=== PATIENT | female | born 1940 | race Caucasian/White ===

== ENCOUNTER 2017-10-01 12:50 | Outpatient (CLI) | payer OTHER, MEDICARE | END 2017-10-01 12:51 | disposition home or self-care (01) | LOC: BICRAD 12:50 | PROVIDERS: ATTEND Family Medicine | DX: R05 Cough (principal); J43.9 Emphysema, unspecified; I51.7 Cardiomegaly | CPT/HCPCS: 71046 ==

== ENCOUNTER 2018-08-11 11:26 | Inpatient (IN) | payer MEDICARE, OTHER ==
[2018-08-11 12:07] LABS: #Eosinphils 0.3 thou/uL (0.0-0.7); #Lymphocytes 0.9 thou/uL (1.20-3.40); #Monocytes 0.7 thou/uL (0.11-0.59); #Neutrophils 5.3 thou/uL (1.40-6.50); %Basophils 0.1 % (0.0-1.0); %Eosinophils 4.2 % (0.0-10.0); %Lymphocytes 12.2 % (21.0-51.0); %Monocytes 9.2 % (0.0-10.0); %Neutrophils 74.4 % (42.0-75.0); Hemoglobin 13.3 g/dL (12.0-16.0); Mean Corpuscular HGB CONC 30.7 g/dL (32.0-36.0); Mean Corpuscular Hemoglobin 26.8 pg (27.0-31.0); Mean Corpuscular Volume 87.4 fL (78.0-98.0); Platelet Count 263 thou/uL (130-400); Red Blood Cell (RBC) Count 4.97 mill/uL (4.20-5.40); White Blood Cell (WBC) Count 7.2 thou/uL (4.8-10.8)
--- NOTE | 2018-08-11 12:13 | RAD ---
Chest AP view INDICATION: Shortness of breath COMPARISON: October 01, 2017 FINDINGS: Lungs:There is bibasilar opacities possibly reflective of pneumonia or atelectasis. Cardiac silhouette pulmonary vasculature:There is moderate cardiomegaly with mild pulmonary vascular congestion. Pleural spaces:There is moderate right and small left pleural effusion. Upper abdomen:No abnormality seen. Osseous structures: No acute osseous abnormality. Additional findings:There is a single lead pacemaker overlying the left chest wall which is new. IMPRESSION: Findings suspicious for CHF. Continued follow-up is recommended.
[2018-08-11 12:21] LABS: ALT (SGPT) 9 U/L (8-55); AST (SGOT) 20 U/L (5-34); Albumin 3.5 g/dL (3.4-4.8); Alkaline Phosphatase 115 U/L (40-150); Anion Gap 13 mmol/L (10-20); BUN (Urea Nitrogen) 6 mg/dL (9.8-20.1); Bilirubin, Total 0.9 mg/dL (0.2-1.2); CK (CPK) 59 U/L (29-168); Calc. Creatinine Clearance 0 mL/min (70-130); Calcium 8.9 mg/dL (7.8-10.44); Carbon Dioxide 30 mmol/L (23-31); Chloride 100 mmol/L (98-107); Estimated GFR-MDRD 80; Globulin 3.1 g/dL (2.4-3.5); Glucose 115 mg/dL (83-110); Lipase 53 U/L (8-78); Potassium 3.5 mmol/L (3.5-5.1); Protein, Total 6.6 g/dL (6.0-8.3); Sodium 139 mmol/L (136-145)
[2018-08-11 13:10] LABS: Bilirubin Negative (Negative); Blood, Urine Negative (Negative); Clarity CLOUDY (Clear); Glucose, Urine (Dipstick) Negative (Negative); Leukocyte Moderate (Negative); Nitrite Negative (Negative); Protein, Urine (Dipstick) Negative (Neg-Trace); Specific Gravity, Urine 1.004 (1.002-1.036); Urobilinogen 0.2 mg/dL (0.2-1.0)
[2018-08-11 13:14] LABS: Bacteria/HPF None Seen HPF (None Seen); Hyaline Casts/LPF 4-6 HYALINE CAST LPF (0-3 Hyaline); Pathc Cast-AUWi Flag 1.08 (0-2.49); RBC/HPF 0-3 HPF (0-3)
--- NOTE | 2018-08-11 14:35 | PDOC.FPRHP ---
- History of Present Illness Chief Complaint: shortness of breath History of Present Illness: 78 yo f with PMH of afib, cardiac stentx1, COPD, and CHF presents with shortness of breath and weakness with walking for the past two days. Today, she could not even walk to her car due to weakness and SOB so she called EMS. She denies chest pain and palpitations. She just had a pacemaker placed on Sunday. She also endorses pain in her right thorax and has been told it's pleurisy. She uses 2L O2 NC at home since May. She was recently discharged from the [facility] ( her nursing informatics specialist Dr Ramos is at the [facility]). She came here because Dr. Bello is her warehouse inventory clerk. She denies Fevers/headaches. Reports cough. She was seen by Dr. Ramos (cardiology) and told she had fluid on her lung on Sunday. She was told to make an appointment with Dr. Bello for the pleural effusions and for pulmonary fibrosis. She reports she has a spot in her lung that Dr. Bello said was scar tissue. In the ED: Recieved 80 lasix, cardizem 10 mg (for concern for Afib with RVR, rate was in low 100s). - Allergies/Adverse Reactions Allergies Allergy/AdvReac Type Severity Reaction Status Date / Time adhesive tape Allergy Verified 08/11/18 18:39 - Home Medications Medication Instructions Recorded Confirmed Type Apixaban [Eliquis] 5 mg PO BID 08/11/18 08/11/18 History Aspirin [Aspir-Low] 81 mg PO DAILY 08/11/18 08/11/18 History Folic Acid 1 mg PO DAILY 08/11/18 08/11/18 History Furosemide [Lasix] 40 mg PO DAILY 08/11/18 08/11/18 History Levothyroxine Sodium 50 mcg PO DAILY 08/11/18 08/11/18 History Metoprolol Tartrate 25 mg PO BID 08/11/18 08/11/18 History Potassium Chloride [K-Dur] 20 meq PO DAILY 08/11/18 08/11/18 History Rosuvastatin [Crestor] 10 mg PO HS 08/11/18 08/11/18 History hydrOXYzine [Atarax] 10 mg PO BID PRN 08/11/18 08/11/18 History - History PMHx: 1.)Atrial Fibrillation 2.)CAD s/p stent x 1 3.)PVD s/p stents b/l LE 4.)Laryngeal cancer s/p radiation 2010 5.)Rectocele with pessary 6.)CHF 7.)Pulmonary fibrosis 8.)HTN 9.)HLD 10.)COPD PSHx: pacemaker, stents, D&C x3, appy, hysterectomy FHx: mother-htn, heart disease, cva Social: used to smoke for 40 years, one pack per day, quit 8 years ago; drinks occasionally (1x/mo); denies drug use - Review of Systems General: denies: fever/chills, weight/appetite/sleep changes Eyes: denies: eye pain, vision changes ENT: reports: rhinorrhea. denies: nasal congestion Respiratory: reports: cough (coughs up mucous), congestion, shortness of breath Cardiovascular: denies: chest pain, palpitation, edema Gastrointestinal: denies: nausea, vomiting, diarrhea, GI bleeding Genitourinary: denies: incontinence, dysuria Skin: denies: rashes, lesions Musculoskeletal: denies: pain, tenderness Neurological: reports: weakness. denies: numbness, syncope Psychological: denies: anxiety, depression - Vital signs BP: [123/67] HR: [96] RR: [22] Tmax: [97.6] Pox: [93]% on [4L] Wt: [57 kg] - Physical Exam Constitutional: NAD, awake, alert and oriented HEENT: normocephalic and atraumatic, PERRLA, EOMI, conjunctiva clear, grossly normal hearing, oropharynx clear -HEENT: MM dry Neck: supple, no LAD Heart: other (Irregularly irregular rhythm no murmurs) Lungs: other (decreased air movement diffusely, worse at the bases. No crackles or wheezes or rhonchi) Musculoskeletal: normal structure, normal tone Neurological: no focal deficit, DTRs 2+ Skin: no rash/lesions, good turgor -Skin: cap refill 3 seconds Psychiatric: normal mood and affect, good judgment and insight, intact recent and remote memory FMR H&P: Results - Labs Result Diagrams: 08/11/18 11:57 08/11/18 11:57 Lab results: WBC 7.2 thou/uL (4.8-10.8) 08/11/18 11:57 Hgb 13.3 g/dL (12.0-16.0) 08/11/18 11:57 Hct 43.5 % (36.0-47.0) 08/11/18 11:57 MCV 87.4 fL (78.0-98.0) 08/11/18 11:57 Plt Count 263 thou/uL (130-400) 08/11/18 11:57 Neutrophils % 74.4 % (42.0-75.0) 08/11/18 11:57 Sodium 139 mmol/L (136-145) 08/11/18 11:57 Potassium 3.5 mmol/L (3.5-5.1) 08/11/18 11:57 Chloride 100 mmol/L (98-107) 08/11/18 11:57 Carbon Dioxide 30 mmol/L (23-31) 08/11/18 11:57 BUN 6 mg/dL (9.8-20.1) L 08/11/18 11:57 Creatinine 0.71 mg/dL (0.6-1.1) 08/11/18 11:57 Glucose 115 mg/dL (83-110) H 08/11/18 11:57 Lactic Acid 1.5 mmol/L (0.5-2.2) 08/11/18 11:57 Calcium 8.9 mg/dL (7.8-10.44) 08/11/18 11:57 Total Bilirubin 0.9 mg/dL (0.2-1.2) 08/11/18 11:57 AST 20 U/L (5-34) 08/11/18 11:57 ALT 9 U/L (8-55) 08/11/18 11:57 Alkaline Phosphatase 115 U/L (40-150) 08/11/18 11:57 Creatine Kinase 59 U/L (29-168) 08/11/18 11:57 B-Natriuretic Peptide 352.4 pg/mL (0-100) H 08/11/18 11:57 Serum Total Protein 6.6 g/dL (6.0-8.3) 08/11/18 11:57 Albumin 3.5 g/dL (3.4-4.8) 08/11/18 11:57 Lipase 53 U/L (8-78) 08/11/18 11:57 Urine Ketones Negative mg/dL (Negative) 08/11/18 12:45 Urine Blood Negative (Negative) 08/11/18 12:45 Urine Nitrite Negative (Negative) 08/11/18 12:45 Ur Leukocyte Esterase Moderate (Negative) H 08/11/18 12:45 Urine RBC 0-3 HPF (0-3) 08/11/18 12:45 Urine WBC 11-20 HPF (0-3) H 08/11/18 12:45 Ur Squamous Epith Cells 4-6 HPF (0-3) H 08/11/18 12:45 Urine Bacteria None Seen HPF (None Seen) 08/11/18 12:45 - EKG Interpretation EKG: atrial fibrillation pulse 104, QTc 489 - Radiology Interpretation Chest x-ray Status: image reviewed by me, report reviewed by me Additional comment: moderate cardiomegaly with mild vascular pulmonary congestion, bilat pleural effusions R>L FMR H&P: A/P - Problem List (1) Acute and chronic respiratory failure with hypoxia Current Visit: Yes Status: Acute Code(s): J96.21 - ACUTE AND CHRONIC RESPIRATORY FAILURE WITH HYPOXIA (2) Atrial fibrillation Current Visit: Yes Status: Chronic Code(s): I48.91 - UNSPECIFIED ATRIAL FIBRILLATION (3) Presence of stent in coronary artery in patient with coronary artery disease Current Visit: Yes Status: Chronic Code(s): I25.10 - ATHSCL HEART DISEASE OF [place] CORONARY ARTERY W/O ANG PCTRS; Z95.5 - PRESENCE OF CORONARY ANGIOPLASTY IMPLANT AND GRAFT (4) PVD (peripheral vascular disease) Current Visit: Yes Status: Chronic Code(s): I73.9 - PERIPHERAL VASCULAR DISEASE, UNSPECIFIED (5) Hx of laryngeal cancer Current Visit: Yes Status: Chronic Code(s): Z85.21 - PERSONAL HISTORY OF MALIGNANT NEOPLASM OF LARYNX (6) Rectocele Current Visit: Yes Status: Chronic Code(s): N81.6 - RECTOCELE (7) CHF (congestive heart failure) Current Visit: Yes Status: Chronic Code(s): I50.9 - HEART FAILURE, UNSPECIFIED (8) Pulmonary fibrosis Current Visit: Yes Status: Chronic Code(s): J84.10 - PULMONARY FIBROSIS, UNSPECIFIED (9) HTN (hypertension) Current Visit: Yes Status: Chronic Code(s): I10 - ESSENTIAL (PRIMARY) HYPERTENSION (10) HLD (hyperlipidemia) Current Visit: Yes Status: Chronic Code(s): E78.5 - HYPERLIPIDEMIA, UNSPECIFIED (11) COPD (chronic obstructive pulmonary disease) Current Visit: Yes Status: Chronic - Plan Acute on chronic hypoxemic respiratory failure 2/2 CHF Exacerbation -SOB today, BNP elevated; at home on 2L BNC, here requring 3 L -recently placed pacemaker -[facility] her [facility] at the [facility], will request records -ED: 80 lasix IV, cardizem 10 mg -EKG shows atrial fib, tachycardic to 104 -ABG shows hypoxemia -continue home lasix -consider echo after we receive records from the [facility] Pleuritis -CXR shows bilat pleural effusions, R>L -complains of right and left sided back pain that is inspiratory -toradol PRN for pain Atrial Fibrillation -continue eliquis, bb -s/p pacemaker 2 days ago -hx of multiple failed cardioversions CAD s/p stent x 1 PVD s/p stents b/l LE -aware CHF -unknown type -as above Pulmonary fibrosis -plans to follow up outpatient with Dr. Bello HTN -continue home meds HLD -continue home crestor COPD -duonebs PRN -40 PY hx, quit 8 yrs ago Dispo: admit to tele obs PCP: Dr. Melendez Code status: Full Diet: HH, fluid restricted FMR H&P: Upper Level - Pertinent history 78 f with pmhx of CHF and COPD presents with shortness of breath, SERRANO, orthopnea , admitted for a acute on chronic hypoxic respiratory failure 2/2 CHF exacerbation and Afib with RVR. NAD irregularly irregular, 80s crackles bilaterally, saturating 90% 3-4L abdomen soft, nondistended, nontender 1+ pitting edema A/P: #Acute hypoxic respiratory failure 2/2 CHF exacerbation-chronically requires oxygen 2L at home. Increased oxygen requirement here 3-4L. Will diurese with lasix, monitor I/Os, net goal -1L. #Afib with RVR- pt HR in the 80s currently after getting diltiazem in the ER; will restart home meds and monitor on tele #COPD, Pulm fibrosis-pt desires to see Dr. Bello during this hospitalization. Will monitor respiratory status overnight and consider consult in the am. Chronic conditions-see technical internship note. - Plan Date/Time: 08/11/18 1431 I, [], have evaluated this patient and agree with findings/plan as outlined by technical internship resident. Pertinent changes/additions are listed here.
[2018-08-11] MEDS ORDERED: Furosemide 40 MG/4 ML VIAL ONE (14:52)
[2018-08-11 15:19] LABS: Troponin I 0.022 ng/mL (< 0.028)
[2018-08-11 16:44] LABS: Actual Bicarbonate (HCO3a) 29.6 mEq/L (22-28); Analyzer IN Cardio ER; Base Excess (BEa) 3.4 mEq/L (-2.0 to +3.0); CO2 Tension 50.9 mmHg (35.0-45.0); Carboxyhemoglobin (COHb) 0.9 gm% (0.0-3.0); Hemoglobin (Hb) 14.5 g/dL (12.0-16.0); Potassium - ABG Lab 3.48 mmol/L (3.70-5.30); pH, Arterial 7.38 (7.35-7.45)
[2018-08-11 16:45] LABS: O2 Tension (PaO2) 57.5 mmHg (> 70.0); Puncture Site LRA
--- NOTE | 2018-08-11 16:51 | PDOC.EVN ---
Addendum - Attending - Attending Attestation Date/Time: 08/11/18 1964 I personally evaluated the patient and discussed the management with Dr. Mckeon/ Caity. I agree with the History, Examination, Assessment and Plan documented in the electronic H&P with any addition or exceptions noted below. Patient with history of COPD, lung fibrosis, CHF unspecified, and Afib here with 2 days of worsening SERRANO with minimal ambulation, worsening orthopnea. Denies LE edema. Had pacemaker placed 2 days ago at [facility]. Denies chest pain, cough, fevers. Exam shows no respiratory distress, lungs with rales diffusely on inspiration. No LE edema. Heart rate irregular. Labs show elevated BNP, cardiac enzymes negative, CXR consistent with CHF. Plan to admit patient to tele , continue her increased O2 requirement as needed. Increase diuresis. Consider echocardiogram given her recent pacemaker placement to ensure this is not due to AV dissynchrony. Consider cardiology consult in AM. Monitor HR, currently in her chronic Afib.
[2018-08-11] MEDS ORDERED: Acetaminophen 650 MG Suppository PR PRN (18:02)
[2018-08-11] MEDS ORDERED: Senokot S 8.6-50 MG TAB PO PRN (18:02)
[2018-08-11] MEDS ORDERED: Acetaminophen 325 MG TAB PO PRN (18:02)
[2018-08-11 18:40] LABS: Troponin I 0.025 ng/mL (< 0.028)
[2018-08-11] MEDS: Apixaban 5 MG TAB PO SCH (19:51)
[2018-08-11] MEDS: Famotidine 20 MG TAB PO SCH (19:51)
[2018-08-11] MEDS: Rosuvastatin 10 MG TAB PO SCH (19:51)
[2018-08-11] MEDS: Metoprolol Tartrate 25 MG TAB PO SCH (19:51)
[2018-08-11] MEDS: Ketorolac Tromethamine 30 MG/ML VIAL IVP SCH (19:53)
[2018-08-11] MEDS: hydrOXYzine 10 MG TAB PO PRN (20:51)
[2018-08-12] MEDS: Ketorolac Tromethamine 30 MG/ML VIAL IVP SCH ×2 (00:01→06:09)
[2018-08-12 05:41] LABS: #Eosinphils 0.5 thou/uL (0.0-0.7); #Lymphocytes 1.6 thou/uL (1.20-3.40); #Monocytes 0.9 thou/uL (0.11-0.59); #Neutrophils 3.3 thou/uL (1.40-6.50); %Basophils 0.7 % (0.0-1.0); %Eosinophils 7.7 % (0.0-10.0); %Lymphocytes 24.9 % (21.0-51.0); %Monocytes 14.2 % (0.0-10.0); %Neutrophils 52.6 % (42.0-75.0); Hemoglobin 12.2 g/dL (12.0-16.0); Mean Corpuscular HGB CONC 31.5 g/dL (32.0-36.0); Mean Corpuscular Hemoglobin 27.6 pg (27.0-31.0); Mean Corpuscular Volume 87.6 fL (78.0-98.0); Mean Platelet Volume 9.4 fL (7.4-10.4); Platelet Count 250 thou/uL (130-400); RBC Distribution Width 17.3 % (11.5-14.5); Red Blood Cell (RBC) Count 4.42 mill/uL (4.20-5.40); White Blood Cell (WBC) Count 6.2 thou/uL (4.8-10.8)
[2018-08-12 06:06] LABS: Anion Gap 13 mmol/L (10-20); BUN (Urea Nitrogen) 7 mg/dL (9.8-20.1); Calc. Creatinine Clearance 48 mL/min (70-130); Calcium 8.7 mg/dL (7.8-10.44); Carbon Dioxide 30 mmol/L (23-31); Chloride 100 mmol/L (98-107); Estimated GFR-MDRD 64; Glucose 71 mg/dL (83-110); Potassium 3.1 mmol/L (3.5-5.1); Sodium 140 mmol/L (136-145)
[2018-08-12] MEDS: Levothyroxine Sodium 50 MCG TAB PO SCH (06:08)
[2018-08-12] MEDS: Furosemide 40 MG/4 ML VIAL SLOW IVP SCH ×2 (06:12→13:36)
[2018-08-12] MEDS: Metoprolol Tartrate 25 MG TAB PO SCH ×2 (08:23→19:53)
[2018-08-12] MEDS: Apixaban 5 MG TAB PO SCH ×2 (08:23→19:52)
[2018-08-12] MEDS: Aspirin 81 mg Enteric Coated Tablet PO SCH (08:24)
[2018-08-12] MEDS: Famotidine 20 MG TAB PO SCH ×2 (08:24→19:52)
[2018-08-12] MEDS: Folic Acid 1 MG TAB PO SCH (08:25)
--- NOTE | 2018-08-12 08:41 | PDOC.FM ---
- Subjective Subjective: Pt states that he breathing is improved overnight. She reports continued right sided rib/chest wall pain that wraps around to her back. - Objective MAR Reviewed: Yes Vital Signs & Weight: Vital Signs (12 hours) Temp Pulse Resp BP Pulse Ox 08/12/18 07:25 97.7 F 89 18 123/96 H 96 08/12/18 04:20 97.9 F 92 16 143/76 H 96 08/11/18 23:37 97.4 F L 91 20 135/63 97 Weight Weight 56.2 kg I&O: 08/11/18 08/12/18 08/13/18 06:59 06:59 06:59 Intake Total 324 Output Total 825 Balance -501 Result Diagrams: 08/12/18 04:24 08/12/18 04:24 Phys Exam - Physical Examination Constitutional: NAD HEENT: moist MMs Neck: no JVD, full ROM Crackles at bases, more on the right. Fair air movement Cardiovascular: RRR Gastrointestinal: soft, non-tender, no distention, positive bowel sounds Musculoskeletal: no edema, pulses present Neurological: normal sensation, moves all 4 limbs Psychiatric: A&O x 3 Skin: cap refill <2 seconds Dx/Plan (1) Acute and chronic respiratory failure with hypoxia Code(s): J96.21 - ACUTE AND CHRONIC RESPIRATORY FAILURE WITH HYPOXIA Status: Acute (2) Atrial fibrillation Code(s): I48.91 - UNSPECIFIED ATRIAL FIBRILLATION Status: Chronic (3) CHF (congestive heart failure) Code(s): I50.9 - HEART FAILURE, UNSPECIFIED Status: Chronic (4) COPD (chronic obstructive pulmonary disease) Status: Chronic (5) HLD (hyperlipidemia) Code(s): E78.5 - HYPERLIPIDEMIA, UNSPECIFIED Status: Chronic (6) HTN (hypertension) Code(s): I10 - ESSENTIAL (PRIMARY) HYPERTENSION Status: Chronic (7) Hx of laryngeal cancer Code(s): Z85.21 - PERSONAL HISTORY OF MALIGNANT NEOPLASM OF LARYNX Status: Chronic - Plan Plan: This is a 78 yo female with a pmh of HTN, afib, CHF, pulmonary fibrosis, COPD Acut on chronic hypoxemic respirator failure 2/2 CHF exacerbation -Improving, stable on 4L nc overnight, plan to wean -Recent pacemaker placed -Pending Med records -Continue IV lasix, plan to change to PO this afternoon/tomorrow -Echo if no records from the med Pleuritis -Associated pleural effusions, repeat CXR today and consider thoracentesis -Tylenol and naproxen for pain CAD PVD CHF -Pending records Pulmonary fibrosis -Follow up with Dr. Bello outpt HTN -Continue home meds HLD -Continue home crestor COPD -Duonebs PRN -40 py hx, quit 8 years ago Addendum - Attending - Attending Attestation Date/Time: 08/12/18 2698 I personally evaluated the patient and discussed the management with Dr. Pham I agree with the History, Examination, Assessment and Plan documented above with any addition or exceptions noted below.Patient s/p recent pacemaker atrial fibrillation with bradycardia Medical records from [facility] to be reviewed. Dullness noted LLL oxygen saturations improved with diuresis for f/u CXR today deterime severity Pleural effusion and indications for thoracentesis.
[2018-08-12] MEDS ORDERED: Naproxen 500 MG TAB PO PRN (08:50)
[2018-08-12] MEDS ORDERED: Potassium Chloride 20 MEQ TAB PO SCH (09:00)
[2018-08-12] MEDS: Acetaminophen 325 MG TAB PO SCH ×2 (13:36→18:10)
[2018-08-12] MEDS: Potassium Chloride 20 MEQ TAB PO SCH ×2 (13:36→18:10)
[2018-08-12] MEDS ORDERED: Diltiazem 125 MG in Sodium Chloride 0.9% 100 ML IVPB SCH (15:00)
[2018-08-12] MEDS ORDERED: Metoprolol Tartrate 25 MG TAB PO SCH (15:00)
--- NOTE | 2018-08-12 15:53 | RAD ---
EXAM: Two views chest PROVIDED CLINICAL HISTORY: Pleural effusion. COMPARISON: 08/11/2018 FINDINGS: Single lead left subclavian cardiac pacemaker device remains in place. The right cardiac border is ob scured due to moderately large right pleural effusion. There is associated atelectasis at the right lung base. Increased interstitial densities are seen in the lungs bilaterally which may be related to mild chronic lung changes. Vascular calcifications are seen in the thoracic aorta. No other interval change. IMPRESSION: Stable chest with moderately large right pleural effusion and associated atelectasis. Superimposed in filtrate cannot be entirely excluded..
[2018-08-12] MEDS: hydrOXYzine 10 MG TAB PO PRN (18:10)
[2018-08-12] MEDS: Rosuvastatin 10 MG TAB PO SCH (19:52)
[2018-08-12] MEDS ORDERED: Metoprolol Tartrate 50 MG TAB PO SCH (21:00)
[2018-08-13] MEDS: Acetaminophen 325 MG TAB PO SCH ×4 (01:11→17:07)
[2018-08-13 05:52] LABS: #Eosinphils 0.5 thou/uL (0.0-0.7); #Lymphocytes 1.6 thou/uL (1.20-3.40); #Monocytes 0.7 thou/uL (0.11-0.59); %Basophils 0.6 % (0.0-1.0); %Eosinophils 8.2 % (0.0-10.0); %Lymphocytes 27.3 % (21.0-51.0); %Monocytes 11.7 % (0.0-10.0); %Neutrophils 52.1 % (42.0-75.0); Hemoglobin 12.5 g/dL (12.0-16.0); Mean Corpuscular HGB CONC 31.3 g/dL (32.0-36.0); Mean Corpuscular Hemoglobin 27.4 pg (27.0-31.0); Mean Corpuscular Volume 87.7 fL (78.0-98.0); Mean Platelet Volume 9.3 fL (7.4-10.4); Platelet Count 259 thou/uL (130-400); RBC Distribution Width 17.1 % (11.5-14.5); Red Blood Cell (RBC) Count 4.56 mill/uL (4.20-5.40); White Blood Cell (WBC) Count 5.8 thou/uL (4.8-10.8)
[2018-08-13 06:01] LABS: Anion Gap 11 mmol/L (10-20); BUN (Urea Nitrogen) 11 mg/dL (9.8-20.1); Calc. Creatinine Clearance 38 mL/min (70-130); Calcium 8.7 mg/dL (7.8-10.44); Carbon Dioxide 31 mmol/L (23-31); Chloride 101 mmol/L (98-107); Estimated GFR-MDRD 49; Glucose 82 mg/dL (83-110); Sodium 139 mmol/L (136-145)
[2018-08-13] MEDS: Levothyroxine Sodium 50 MCG TAB PO SCH (06:20)
[2018-08-13] MEDS: Furosemide 40 MG/4 ML VIAL SLOW IVP SCH (06:20)
--- NOTE | 2018-08-13 06:34 | PDOC.FM ---
- Subjective Subjective: No complaints overnight. She denies SOB, chest pain, palpitations, or abdominal pain. She still continues to complain of some rib pain on the right that is worse with palpation. - Objective MAR Reviewed: Yes Vital Signs & Weight: Vital Signs (12 hours) Temp Pulse Resp BP Pulse Ox 08/13/18 03:45 98.1 F 86 16 154/67 H 95 08/12/18 23:32 98.5 F 69 20 152/63 H 96 08/12/18 19:52 94 L Weight Weight 56.563 kg I&O: 08/11/18 08/12/18 08/13/18 06:59 06:59 06:59 Intake Total 324 480 Output Total 825 Balance -501 480 Result Diagrams: 08/13/18 04:40 08/13/18 04:40 Phys Exam - Physical Examination Constitutional: NAD HEENT: moist MMs Neck: no nodes, no JVD Mild Wheezing diffusely in the lung hancock and crackles at bases R>L Cardiovascular: no significant murmur Irregular rate and rhythm Gastrointestinal: soft, non-tender, no distention, positive bowel sounds Musculoskeletal: no edema, pulses present Neurological: moves all 4 limbs Psychiatric: A&O x 3 Skin: cap refill <2 seconds Dx/Plan (1) Acute and chronic respiratory failure with hypoxia Code(s): J96.21 - ACUTE AND CHRONIC RESPIRATORY FAILURE WITH HYPOXIA Status: Acute (2) Atrial fibrillation Code(s): I48.91 - UNSPECIFIED ATRIAL FIBRILLATION Status: Chronic (3) CHF (congestive heart failure) Code(s): I50.9 - HEART FAILURE, UNSPECIFIED Status: Chronic (4) COPD (chronic obstructive pulmonary disease) Status: Chronic (5) HLD (hyperlipidemia) Code(s): E78.5 - HYPERLIPIDEMIA, UNSPECIFIED Status: Chronic (6) HTN (hypertension) Code(s): I10 - ESSENTIAL (PRIMARY) HYPERTENSION Status: Chronic (7) Hx of laryngeal cancer Code(s): Z85.21 - PERSONAL HISTORY OF MALIGNANT NEOPLASM OF LARYNX Status: Chronic - Plan Plan: This is a 78 yo female with a pmh of HTN, afib, CHF, pulmonary fibrosis, COPD Acut on chronic hypoxemic respirator failure 2/2 CHF exacerbation -Improving, stable on 2L nc overnight, plan to wean -Recent pacemaker placed -Change to PO Pleuritis -Associated pleural effusions, repeat CXR shows unchanged pleural effusions, no plan for thoracentesis as pt is improving -Tylenol and naproxen for pain CAD PVD HFpEF -LVEF 55-60% at Med 06/27/18 Pulmonary fibrosis -Follow up with Dr. Bello outpt HTN -Continue home meds HLD -Continue home crestor COPD -Duonebs PRN -40 py hx, quit 8 years ago Addendum - Attending - Attending Attestation Date/Time: 08/13/18 6008 I personally evaluated the patient and discussed the management with Dr. Pham I agree with the History, Examination, Assessment and Plan documented above with any addition or exceptions noted below. Moderate Right sided Pleural effusion noted no dyspnea however mild splinting with deep inspiration. Last pm A-Fib with RVR currently rate controlled and back on oral diltiazem. Review records from [facility] indicate right sided pleural effusion not new. Patient continues to improve may benefit from diagnostic thoracentesis in the future as long as continued clinical improvement recommend expectant management for the time being. Will confer with Pulmonary prn.
[2018-08-13] MEDS: Aspirin 81 mg Enteric Coated Tablet PO SCH (09:23)
[2018-08-13] MEDS: Potassium Chloride 20 MEQ TAB PO SCH ×3 (09:24→17:06)
[2018-08-13] MEDS: Folic Acid 1 MG TAB PO SCH (09:25)
[2018-08-13] MEDS: Metoprolol Tartrate 25 MG TAB PO SCH ×2 (09:25→19:37)
[2018-08-13] MEDS: Apixaban 5 MG TAB PO SCH (09:25)
[2018-08-13] MEDS: Furosemide 40 MG TAB PO SCH (10:47)
--- NOTE | 2018-08-13 11:04 | PQF ---
CLINICAL DOCUMENTATION IMPROVEMENT CLARIFICATION FORM: ICD-10 Updated PLEASE DO AN ADDENDUM TO THE PROGRESS NOTE WITH ANY DOCUMENTATION UPDATES OR ADDITIONS AND CARRY THROUGH TO DC SUMMARY. THANK YOU. DATE: 08/16/18 ATTN: DR. AGUILA Please exercise your independent, professional judgment in responding to the clarification form. Clinical indicators are provided on the bottom of this form for your review Please check appropriate box(s): HEART FAILURE: A. TYPE: [ ] Systolic / HFrEF [ ] Diastolic / HFpEF [ ] Combined Systolic / Diastolic B. ACUITY [ ] Acute [ ] Acute on Chronic [ ] Chronic [ x] Other diagnosis, pulmonary hypertension [ ] Unable to determine In addition, please specify: Present on Admission (POA): [ x ] Yes [ ] No [ ] Unable to determine For continuity of documentation, please document condition throughout progress notes and discharge summary. Thank You. CLINICAL INDICATORS - SIGNS / SYMPTOMS / LABS ER NOTE: "CHF EXACERBATION" PROGRESS NOTE: "ACUTE ON CHRONIC RESPIRATORY FAILURE 2/2 CHF EXACERBATION BNP 352.4 RISKS: AFIB PULMONARY DISEASE TREATMENT: IV LASIX (ER-08/13) PO LASIX (START 08/13) CARDIOLOGY CONSULT SERIAL LABS (This form is maintained as a part of the permanent medical record) 2014 [employer]. All Rights Reserved MTDD
--- NOTE | 2018-08-13 16:19 | CON ---
DATE OF CONSULTATION: 08/13/2018 SERVICE: Pulmonary Medicine. REASON FOR CONSULTATION: Pleural effusion. HISTORY OF PRESENT ILLNESS: The patient is a 78-year-old white female with past medical history significant for atrial fibrillation. She was recently hospitalized because of AFib with RVR. Ultimately, she had a single-lead pacemaker placed. This was placed on Sunday. She was discharged home from hospital, and was actually feeling very good. That being said, Sunday morning, she woke up and simply felt weak. This progressed throughout the entire day. On Sunday morning, she had increasing dyspnea with, particularly with exertion. She presented to the emergency department on Sunday evening, and was subsequently admitted to the hospital. A new pleural effusion was identified. We have never seen this type of thing before. She denies any current fevers or chills. She denies any nausea or vomiting. She was not having any diarrhea. She felt extremely weak, and whenever she stands up, she felt lightheaded. In the emergency department, she was discovered to be in atrial fibrillation. She had a rapid rate. Since being in the hospital, she was diuresed and she is actually feeling a little bit stronger/better. PAST MEDICAL HISTORY: 1. Chronic hypoxic respiratory failure. 2. Pulmonary fibrosis, possible, but early in the process. 3. Atrial fibrillation. 4. Coronary artery disease. 5. Peripheral vascular disease. 6. History of laryngeal cancer status post radiation therapy in 2010. 7. Rectocele with pessary in place. 8. Congestive heart failure. 9. Hypertension. 10. Dyslipidemia. PAST SURGICAL HISTORY: 1. Pacemaker placement, 4 days ago. 2. Percutaneous coronary intervention. 3. Peripheral stent in bilateral lower extremities. 4. Dilation and curettage x3. 5. Appendectomy. 6. Hysterectomy. FAMILY HISTORY: Noncontributory. SOCIAL HISTORY: She has a greater than [id number] history of smoking, but quit about 8 years ago. She drinks alcohol rarely, and denies any street drugs. She has no exposure to chemicals, dust, asbestos, or tuberculosis otherwise. ALLERGIES: TAPE. MEDICATIONS: List of her inpatient medications were reviewed. I have held her anticoagulation for the time being. REVIEW OF SYSTEMS: General; head, ears, eyes, nose, and throat; cardiovascular; respiratory; GI; ; musculoskeletal; neurologic; and skin is negative except as mentioned in the HPI. PHYSICAL EXAMINATION: VITAL SIGNS: Afebrile, pulse 101, blood pressure 136/87, respirations 16, and saturation 92% on 3L nasal cannula. GENERAL: The patient is awake and alert, in no apparent distress. HEENT: Normocephalic and atraumatic. Sclerae white. Conjunctivae pink. Oral mucosa is moist without lesions. LUNGS: Very reduced air entry. There is a slightly prolonged expiratory phase. Poor air entry at the right base. There is dullness to percussion there. There is a slightly prolonged expiratory phase. No wheezing is appreciated, though crackles are present. HEART: Normal rate and regular. ABDOMEN: Soft, nontender, and nondistended. Bowel sounds are positive. MUSCULOSKELETAL: No cyanosis or clubbing. There is no pitting in the bilateral lower extremities. NEUROLOGIC: Grossly nonfocal. LABORATORY DATA: WBC 5.8, hemoglobin 12.5 and stable, and platelets 259,000. Differential falls within the normal limits with elevated monocyte count. INR 2.8. A pH of 7.38, pCO2 of 51, and pO2 of 57.5. Basic metabolic profile is unremarkable. Creatinine 1.09, it is gently up trending. Troponin is negative x3. Lactate is negative. Liver function studies are unremarkable. BNP is 352, with no baseline. Urinalysis is positive for minimal leukocyte esterase, but otherwise unremarkable. Urinalysis is negative to date. IMAGING STUDIES: Chest x-ray shows a large moderate right-sided pleural effusion. There is possibly a left-sided pleural effusion, which is small. Interstitial fullness is present throughout bilateral lung hancock. Trachea is midline. The carinal angle appears to be fairly sharp. ASSESSMENT: 1. [id number]-dl-oyhvpim hypoxic respiratory failure. 2. Chronic hypercapnic respiratory failure. 3. Pleural effusion, possibly new onset. 4. Atrial fibrillation, status post single-lead pacemaker placement. DISCUSSION AND PLAN: We will continue to diurese her cautiously through time. I will hold her anticoagulation in case she needs additional procedures and/or thoracentesis over the next 24-48 hours. The patient indicates that she is feeling a little better. We have not seen an echocardiogram since she had this pacemaker placed. We will get a stat one to make certain she did not have any pericardial effusion and to evaluate for dyssynchrony. Pulmonary will continue to follow. Dr. Bello will assume care in the morning. 70 minutes have been devoted to this patient in various activities. I personally reviewed all imaging studies and laboratory data noted within this document. For fifty percent of this time, I was interacting with the patient at the bedside or coordinating care with the care team. For the remainder of the time I was immediately available to the patient in the hospital unit. Job ID: [id number] MTDD
--- NOTE | 2018-08-13 16:47 | EKG ---
Test Reason : Blood Pressure : / mmHG Vent. Rate : 122 BPM Atrial Rate : 104 BPM P-R Int : 000 ms QRS Dur : 084 ms QT Int : 302 ms P-R-T Axes : 000 073 220 degrees QTc Int : 430 ms 3 Atrial fibrillation with rapid ventricular response Septal infarct , age undetermined Abnormal ECG When compared with ECG of 11-AUG-2018 11:47, (Unconfirmed) No significant change was found Confirmed by DR. Jordan PALACIOS (3) on 08/13/2018 4:47:20 PM Referred By: Confirmed By:DR. Jordan PALACIOS
--- NOTE | 2018-08-13 16:56 | EKG ---
Test Reason : Blood Pressure : / mmHG Vent. Rate : 102 BPM Atrial Rate : 112 BPM P-R Int : 000 ms QRS Dur : 082 ms QT Int : 358 ms P-R-T Axes : 000 085 261 degrees QTc Int : 466 ms one paced beat Atrial fibrillation with rapid ventricular response with premature ventricular or aberrantly conducte d complexes Abnormal ECG When compared with ECG of 11-AUG-2018 11:47, (Unconfirmed) Electronic demand pacing is now Present Confirmed by DR. Jordan PALACIOS (3) on 08/13/2018 4:56:10 PM Referred By: REMEDIOS Confirmed By:DR. Jordan PALACIOS
[2018-08-13] MEDS: hydrOXYzine 10 MG TAB PO PRN (17:10)
[2018-08-13] MEDS: Rosuvastatin 10 MG TAB PO SCH (19:37)
[2018-08-13] MEDS: Famotidine 20 MG TAB PO SCH (19:37)
[2018-08-14] MEDS: Acetaminophen 325 MG TAB PO SCH ×4 (00:02→17:28)
[2018-08-14] MEDS: Levothyroxine Sodium 50 MCG TAB PO SCH (05:52)
--- NOTE | 2018-08-14 07:04 | PDOC.FM ---
- Subjective Subjective: Pt state her breathing is improved. She denies chest pain. She denies other complaints - Objective MAR Reviewed: Yes Vital Signs & Weight: Vital Signs (12 hours) Temp Pulse Resp BP BP Pulse Ox 08/14/18 03:45 97.7 F 105 H 18 132/64 98 08/13/18 20:00 97.2 F L 89 20 132/62 96 08/13/18 19:20 96 Weight Weight 55.52 kg I&O: 08/13/18 08/14/18 08/15/18 06:59 06:59 06:59 Intake Total 734 780 Output Total 1450 Balance 734 -670 Result Diagrams: 08/14/18 06:56 08/14/18 06:56 Phys Exam - Physical Examination Constitutional: NAD HEENT: moist MMs Neck: no JVD Crackles and dull breath sounds on the right Cardiovascular: no significant murmur Tachycardic, irregular rhythm Gastrointestinal: soft, non-tender, no distention, positive bowel sounds Musculoskeletal: pulses present Neurological: moves all 4 limbs Psychiatric: normal affect, A&O x 3 Skin: cap refill <2 seconds Dx/Plan (1) Acute and chronic respiratory failure with hypoxia Code(s): J96.21 - ACUTE AND CHRONIC RESPIRATORY FAILURE WITH HYPOXIA Status: Acute (2) Atrial fibrillation Code(s): I48.91 - UNSPECIFIED ATRIAL FIBRILLATION Status: Chronic (3) CHF (congestive heart failure) Code(s): I50.9 - HEART FAILURE, UNSPECIFIED Status: Chronic (4) COPD (chronic obstructive pulmonary disease) Status: Chronic (5) HLD (hyperlipidemia) Code(s): E78.5 - HYPERLIPIDEMIA, UNSPECIFIED Status: Chronic (6) HTN (hypertension) Code(s): I10 - ESSENTIAL (PRIMARY) HYPERTENSION Status: Chronic (7) Hx of laryngeal cancer Code(s): Z85.21 - PERSONAL HISTORY OF MALIGNANT NEOPLASM OF LARYNX Status: Chronic - Plan Plan: This is a 78 yo female with a pmh of HTN, afib, CHF, pulmonary fibrosis, COPD Acut on chronic hypoxemic respirator failure 2/2 CHF exacerbation -Improving, stable on 3L nc overnight, plan to wean to baseline of 2L -Recent pacemaker placed -Changed to PO Pleuritis -Associated pleural effusions, repeat CXR shows unchanged pleural effusions, Eliquis held, considering thoracentesis -Tylenol and naproxen for pain -Pulmonology consulted, will appreciate their recommendations CAD PVD CHF -LVEF 55-60% at Med 06/27/18, with no mention of diastolic heart failure -Pending Echo here Pulmonary fibrosis -Follow up with Dr. Bello outpt HTN -Continue home meds HLD -Continue home crestor COPD -Duonebs PRN -40 py hx, quit 8 years ago Afib -Pt on home meds, continues to have elevated HR, increasing Metoprolol to 50mg BID Addendum - Attending - Attending Attestation Date/Time: 08/14/18 1220 I personally evaluated the patient and discussed the management with Dr. Pham I agree with the History, Examination, Assessment and Plan documented above with any addition or exceptions noted below. Patient with significant SERRANO this am post ambulation. Appreciate Pulmonary Figure Refinisher And Repairer recommendations regard care and further consideration thoracentesis for therapeutic and diagnostic reasons DOAC on hold for now. Heart rate poorly controlled will need escalate BB and diltiazem as BP permits for improved rate control. Repeat echocardiogram completed results pending consider Cardiology consultation prn.
[2018-08-14 07:10] LABS: #Eosinphils 0.4 thou/uL (0.0-0.7); #Lymphocytes 1.4 thou/uL (1.20-3.40); #Monocytes 0.6 thou/uL (0.11-0.59); #Neutrophils 3.4 thou/uL (1.40-6.50); %Basophils 0.6 % (0.0-1.0); %Eosinophils 7.2 % (0.0-10.0); %Lymphocytes 24.2 % (21.0-51.0); %Monocytes 10.4 % (0.0-10.0); %Neutrophils 57.6 % (42.0-75.0); Hemoglobin 13.1 g/dL (12.0-16.0); Mean Corpuscular HGB CONC 31.7 g/dL (32.0-36.0); Mean Corpuscular Hemoglobin 27.7 pg (27.0-31.0); Mean Corpuscular Volume 87.3 fL (78.0-98.0); Platelet Count 255 thou/uL (130-400); RBC Distribution Width 17.2 % (11.5-14.5); Red Blood Cell (RBC) Count 4.74 mill/uL (4.20-5.40)
[2018-08-14 07:31] LABS: Anion Gap 10 mmol/L (10-20); BUN (Urea Nitrogen) 15 mg/dL (9.8-20.1); Calc. Creatinine Clearance 41 mL/min (70-130); Calcium 8.9 mg/dL (7.8-10.44); Carbon Dioxide 32 mmol/L (23-31); Chloride 102 mmol/L (98-107); Estimated GFR-MDRD 54; Glucose 82 mg/dL (83-110); Potassium 4.4 mmol/L (3.5-5.1); Sodium 140 mmol/L (136-145)
[2018-08-14] MEDS ORDERED: Metoprolol Tartrate 25 MG TAB PO SCH (08:54)
[2018-08-14] MEDS: Potassium Chloride 20 MEQ TAB PO SCH ×3 (09:12→17:27)
[2018-08-14] MEDS: Furosemide 40 MG TAB PO SCH (09:13)
[2018-08-14] MEDS: Folic Acid 1 MG TAB PO SCH (09:14)
[2018-08-14] MEDS: Aspirin 81 mg Enteric Coated Tablet PO SCH (09:14)
[2018-08-14] MEDS: Metoprolol Tartrate 50 MG TAB PO SCH ×2 (10:13→20:21)
--- NOTE | 2018-08-14 18:00 | PRG ---
DATE OF SERVICE: 08/14/2018 SUBJECTIVE: Mary Cronin was evaluated. She has no complaints. She says she is feeling a little bit better. She is still complaining of some pleuritic chest discomfort. I reviewed her chest radiograph and she has a significant effusion on the right. OBJECTIVE: VITAL SIGNS: She is afebrile. Heart rate is 105, respiratory rate 18, oximetry is 95% on 2 L. LUNGS: Remarkable for decreased breath sounds at the right base. Heart: Irregular rhythm. ABDOMEN: Soft. She is still in atrial fib, reviewed on the monitor. IMPRESSION: 1. Atrial fibrillation, on anticoagulation. Atrial fibrillation is most likely the cause of her effusion. I saw her recently in the office and reviewed a chest x-ray. She was referred for subpleural increase in interstitial markings that I explained to her that it could be the beginning of usual interstitial pneumonitis, but also could be turned out to be nothing such as postinflammatory pulmonary fibrosis. 2. Clinically, I do not believe that she needs a thoracentesis at this time. If her atrial fibrillation can be controlled or she can be kept in sinus rhythm, then we might find that the effusion is gone within a couple weeks. I will re-evaluate her in the morning. I would not withhold anticoagulants for thoracentesis. I will continue to follow with the other physicians. Job ID: [id number]
[2018-08-14] MEDS: Rosuvastatin 10 MG TAB PO SCH (20:21)
[2018-08-14] MEDS: Famotidine 20 MG TAB PO SCH (20:21)
[2018-08-14] MEDS: hydrOXYzine 10 MG TAB PO PRN (20:21)
[2018-08-15] MEDS: Acetaminophen 325 MG TAB PO SCH ×5 (02:02→23:45)
[2018-08-15] MEDS: Levothyroxine Sodium 50 MCG TAB PO SCH (05:34)
--- NOTE | 2018-08-15 06:04 | PDOC.FM ---
- Subjective Subjective: Pt state her breathing is continuing to improve. She states that she had one episode of dizziness yesterday when she was standing up. This was resolved with sitting on the edge of the bed. - Objective MAR Reviewed: Yes Vital Signs & Weight: Vital Signs (12 hours) Temp Pulse Resp BP Pulse Ox 08/15/18 04:00 97.1 F L 102 H 17 166/94 H 96 08/14/18 19:20 97.8 F 108 H 20 94/52 L 93 L Weight Weight 55.52 kg I&O: 08/13/18 08/14/18 08/15/18 06:59 06:59 06:59 Intake Total 734 780 740 Output Total 9640 820 Balance 734 -670 -80 Result Diagrams: 08/15/18 06:07 08/15/18 06:08 Phys Exam - Physical Examination Constitutional: NAD HEENT: moist MMs Neck: no JVD Dull lung sounds at right base, mild crackles at both bases Cardiovascular: no significant murmur Tachycardic, irregular rhythm Gastrointestinal: soft, no distention, positive bowel sounds Musculoskeletal: no edema, pulses present Neurological: moves all 4 limbs Psychiatric: A&O x 3 Skin: cap refill <2 seconds Dx/Plan (1) Acute and chronic respiratory failure with hypoxia Code(s): J96.21 - ACUTE AND CHRONIC RESPIRATORY FAILURE WITH HYPOXIA Status: Acute (2) Atrial fibrillation Code(s): I48.91 - UNSPECIFIED ATRIAL FIBRILLATION Status: Chronic (3) CHF (congestive heart failure) Code(s): I50.9 - HEART FAILURE, UNSPECIFIED Status: Chronic (4) COPD (chronic obstructive pulmonary disease) Status: Chronic (5) HLD (hyperlipidemia) Code(s): E78.5 - HYPERLIPIDEMIA, UNSPECIFIED Status: Chronic (6) HTN (hypertension) Code(s): I10 - ESSENTIAL (PRIMARY) HYPERTENSION Status: Chronic (7) Hx of laryngeal cancer Code(s): Z85.21 - PERSONAL HISTORY OF MALIGNANT NEOPLASM OF LARYNX Status: Chronic - Plan Plan: This is a 78 yo female with a pmh of HTN, afib, CHF, pulmonary fibrosis, COPD Acut on chronic hypoxemic respirator failure 2/2 CHF exacerbation -Improving, stable on 3L nc overnight, plan to wean to baseline of 2L -Recent pacemaker placed -On PO lasix Pleuritis -Associated pleural effusions, repeat CXR shows unchanged pleural effusions, no procedure at this time -Tylenol and naproxen for pain -Pulmonology consulted, will appreciate their recommendations CAD PVD CHF -LVEF 55-60% at Med 06/27/18, with no mention of diastolic heart failure -Echo here shows LVEF of 50/55%, and pulmonary hypertension, no mention of systolic or diastolic HF Pulmonary fibrosis -Follow up with Dr. Bello outpt HTN -Continue home meds HLD -Continue home crestor COPD -Duonebs PRN -40 py hx, quit 8 years ago Afib -Pt on home meds, continues to have elevated HR, increasing Metoprolol to 50mg BID Addendum - Attending - Attending Attestation Date/Time: 08/15/18 0491 I personally evaluated the patient and discussed the management with Dr. Pham I agree with the History, Examination, Assessment and Plan documented above with any addition or exceptions noted below. Patient continue to improve still oxygen dependant but nearing her baseline appreciate Pulmonary recommendation and hopefully with improved Heart rate control she will be stable for dismissal soon.
[2018-08-15 07:03] LABS: #Eosinphils 0.5 thou/uL (0.0-0.7); #Monocytes 0.8 thou/uL (0.11-0.59); #Neutrophils 3.8 thou/uL (1.40-6.50); %Basophils 0.5 % (0.0-1.0); %Eosinophils 7.5 % (0.0-10.0); %Lymphocytes 28.5 % (21.0-51.0); %Monocytes 10.4 % (0.0-10.0); %Neutrophils 53.2 % (42.0-75.0); Hemoglobin 13.6 g/dL (12.0-16.0); Mean Corpuscular HGB CONC 31.4 g/dL (32.0-36.0); Mean Corpuscular Hemoglobin 27.6 pg (27.0-31.0); Mean Corpuscular Volume 87.8 fL (78.0-98.0); Platelet Count 281 thou/uL (130-400); RBC Distribution Width 17.2 % (11.5-14.5); Red Blood Cell (RBC) Count 4.92 mill/uL (4.20-5.40); White Blood Cell (WBC) Count 7.2 thou/uL (4.8-10.8)
[2018-08-15 07:23] LABS: Anion Gap 10 mmol/L (10-20); BUN (Urea Nitrogen) 15 mg/dL (9.8-20.1); Calc. Creatinine Clearance 45 mL/min (70-130); Calcium 9.1 mg/dL (7.8-10.44); Carbon Dioxide 31 mmol/L (23-31); Chloride 102 mmol/L (98-107); Estimated GFR-MDRD 60; Glucose 78 mg/dL (83-110); Sodium 138 mmol/L (136-145)
[2018-08-15] MEDS: Potassium Chloride 20 MEQ TAB PO SCH ×3 (08:10→18:12)
[2018-08-15] MEDS: Aspirin 81 mg Enteric Coated Tablet PO SCH (08:10)
[2018-08-15] MEDS: Folic Acid 1 MG TAB PO SCH (08:10)
[2018-08-15] MEDS: Metoprolol Tartrate 50 MG TAB PO SCH ×2 (08:10→21:25)
[2018-08-15] MEDS: Furosemide 40 MG TAB PO SCH (08:10)
[2018-08-15] MEDS: Apixaban 5 MG TAB PO SCH ×2 (09:23→21:25)
--- NOTE | 2018-08-15 14:01 | PRG ---
DATE OF SERVICE: 08/15/2018 SUBJECTIVE: Mary Cronin has no new complaints. She states she is feeling better. OBJECTIVE: VITAL SIGNS: She is afebrile, heart rate is 102, respiratory rate is 20, oximetry is 95% on 2 L cannula, and blood pressure is 136/83. GENERAL: She is still in atrial fib. LUNGS: She has decreased breath sounds at the right base. HEART: Irregular. ABDOMEN: Soft. She says she is always in atrial fibrillation. She has never had an electrophysiology evaluation. LABORATORY DATA: White count 7.2, hemoglobin 13.6, and platelets 281. Sodium 138, potassium 5, chloride 102, bicarb 31, BUN 16, and creatinine 0.91. Intake and output, positive 40 mL. IMPRESSION: Right pleural effusion, most likely associated with diastolic dysfunction and slow atrial fibrillation, which lead to a pacemaker last Sunday. I doubt she has a malignant effusion or an infected pleural space. We discussed thoracentesis for diagnostic and therapeutic reasons, although I feel pretty strongly this will be a transudative effusion since it is new associated with a cardiac rhythm disturbance. She would prefer not to undergo thoracentesis at this time, which is a reasonable request. I would repeat a chest radiograph in 2 to 3 weeks. I would wonder if an electrophysiology evaluation would be appropriate both for ablation of the atrial fib or for a potential Watchman procedure to eliminate the need for full-dose anticoagulation as she gets older. We will continue to follow. Job ID: [id number]
[2018-08-15] MEDS: hydrOXYzine 10 MG TAB PO PRN (14:44)
[2018-08-15] MEDS: Famotidine 20 MG TAB PO SCH (21:25)
[2018-08-15] MEDS: Rosuvastatin 10 MG TAB PO SCH (21:25)
[2018-08-16] MEDS: Acetaminophen 325 MG TAB PO SCH ×4 (04:53→18:28)
[2018-08-16] MEDS: Levothyroxine Sodium 50 MCG TAB PO SCH (04:53)
[2018-08-16 05:09] LABS: #Eosinphils 0.5 thou/uL (0.0-0.7); #Lymphocytes 1.9 thou/uL (1.20-3.40); #Monocytes 0.8 thou/uL (0.11-0.59); #Neutrophils 4.5 thou/uL (1.40-6.50); %Basophils 0.3 % (0.0-1.0); %Lymphocytes 24.4 % (21.0-51.0); %Monocytes 10.3 % (0.0-10.0); Hemoglobin 13.5 g/dL (12.0-16.0); Mean Corpuscular HGB CONC 30.7 g/dL (32.0-36.0); Mean Corpuscular Volume 88.1 fL (78.0-98.0); Mean Platelet Volume 9.2 fL (7.4-10.4); Platelet Count 278 thou/uL (130-400); RBC Distribution Width 17.3 % (11.5-14.5); White Blood Cell (WBC) Count 7.7 thou/uL (4.8-10.8)
[2018-08-16 05:30] LABS: Anion Gap 12 mmol/L (10-20); BUN (Urea Nitrogen) 18 mg/dL (9.8-20.1); Calc. Creatinine Clearance 46 mL/min (70-130); Calcium 9.1 mg/dL (7.8-10.44); Carbon Dioxide 30 mmol/L (23-31); Chloride 102 mmol/L (98-107); Estimated GFR-MDRD 61; Glucose 81 mg/dL (83-110); Potassium 4.7 mmol/L (3.5-5.1); Sodium 139 mmol/L (136-145)
--- NOTE | 2018-08-16 06:38 | PDOC.FM ---
- Subjective Subjective: Pt states she is continuing to have shortness of breath overnight. She states she gets up, she has shortness of breath beyond her baseline. She reports that Dr. Bello plans to do a thoracentesis today. - Objective MAR Reviewed: Yes Vital Signs & Weight: Vital Signs (12 hours) Temp Pulse Resp BP Pulse Ox 08/16/18 04:00 97.6 F 84 15 137/62 100 08/15/18 23:43 97.8 F 95 18 149/92 H 98 08/15/18 21:23 97.6 F 110 H 17 155/86 H 95 Weight Weight 55.537 kg I&O: 08/14/18 08/15/18 08/16/18 06:59 06:59 06:59 Intake Total 912 640 7172 Output Total 5985 299 0289 Balance -670 40 -280 Result Diagrams: 08/16/18 04:52 08/16/18 04:52 Phys Exam - Physical Examination Constitutional: NAD HEENT: moist MMs Neck: no JVD, full ROM Respiratory: wheezing present (Improving, basilar crackles more on the right) Cardiovascular: no significant murmur Tachycardic, irregular rhythm Gastrointestinal: soft, non-tender, no distention, positive bowel sounds Musculoskeletal: no edema, pulses present Neurological: moves all 4 limbs Psychiatric: A&O x 3 Skin: cap refill <2 seconds Dx/Plan (1) Acute and chronic respiratory failure with hypoxia Code(s): J96.21 - ACUTE AND CHRONIC RESPIRATORY FAILURE WITH HYPOXIA Status: Acute (2) Atrial fibrillation Code(s): I48.91 - UNSPECIFIED ATRIAL FIBRILLATION Status: Chronic (3) CHF (congestive heart failure) Code(s): I50.9 - HEART FAILURE, UNSPECIFIED Status: Chronic (4) COPD (chronic obstructive pulmonary disease) Status: Chronic (5) HLD (hyperlipidemia) Code(s): E78.5 - HYPERLIPIDEMIA, UNSPECIFIED Status: Chronic (6) HTN (hypertension) Code(s): I10 - ESSENTIAL (PRIMARY) HYPERTENSION Status: Chronic (7) Hx of laryngeal cancer Code(s): Z85.21 - PERSONAL HISTORY OF MALIGNANT NEOPLASM OF LARYNX Status: Chronic - Plan Plan: This is a 78 yo female with a pmh of HTN, afib, CHF, pulmonary fibrosis, COPD Acut on chronic hypoxemic respirator failure 2/2 CHF exacerbation -Improving, stable on 3L nc overnight, plan to wean to baseline of 2L -Recent pacemaker placed -On PO lasix Pleuritis -Associated pleural effusions, repeat CXR shows unchanged pleural effusions, no procedure at this time -Tylenol and naproxen for pain -Pulmonology consulted, will appreciate their recommendations -Dr. Bello recommends ablation vs. watchmans, should be considered with her meal room hand -Consider discharge today pending clinical picture CAD PVD CHF -LVEF 55-60% at Med 06/27/18, with no mention of diastolic heart failure -Echo here shows LVEF of 50/55%, and pulmonary hypertension, no mention of systolic or diastolic HF Pulmonary fibrosis -Follow up with Dr. Bello outpt HTN -Continue home meds HLD -Continue home crestor COPD -Duonebs PRN -40 py hx, quit 8 years ago Afib -Pt on home meds, continues to have elevated HR, increasing Metoprolol to 50mg BID Addendum - Attending - Attending Attestation Date/Time: 08/16/18 1251 I personally evaluated the patient and discussed the management with Dr. Pham I agree with the History, Examination, Assessment and Plan documented above with any addition or exceptions noted below. Status post thoracentesis this AM patient tolerated well hopefully will be able lower oxygen requirement . Continue rate control and observation. Appreciate Pulmonary recommendations.
[2018-08-16] MEDS ORDERED: Lidocaine 1% (PF) 30 ML VIAL SC SCH (08:30)
[2018-08-16] MEDS: Folic Acid 1 MG TAB PO SCH (08:39)
[2018-08-16] MEDS: Furosemide 40 MG TAB PO SCH (08:39)
[2018-08-16] MEDS: Apixaban 5 MG TAB PO SCH ×2 (08:39→20:59)
[2018-08-16] MEDS: Potassium Chloride 20 MEQ TAB PO SCH ×3 (08:39→17:19)
[2018-08-16] MEDS: Aspirin 81 mg Enteric Coated Tablet PO SCH (08:39)
[2018-08-16] MEDS: Metoprolol Tartrate 50 MG TAB PO SCH ×2 (08:39→20:59)
[2018-08-16 09:20] LABS: Fluid, pH - Pleural Fld 7.47
--- NOTE | 2018-08-16 10:21 | OP ---
DATE OF PROCEDURE: 08/16/2018 PROCEDURE PERFORMED: Thoracentesis. INDICATIONS: Ms. Cronin had symptomatic dyspnea, so I have recommended thoracentesis to see if we get her exercise tolerance better. She consented to the procedure. Risk of bleeding, infection, lung collapse, and least likely were explained to her. DESCRIPTION OF PROCEDURE: She was placed in the sitting position. Her right posterior hemithorax was cleansed with chlorhexidine. Her interspace was anesthetized with 1% lidocaine using a 22-gauge needle. The first pass with a needle to anesthetize the pleura yielded air aspiration, so I went down one more interspace and anesthetized the skin and the pleura with a successful aspiration of yellow fluid. I suspect her effusion was predominantly subpulmonic. Approximately 600 mL of clear yellow pleural fluid was evacuated. At the end of the procedure, air was aspirated into the vacuum bottle. Fluid was sent for the appropriate studies. Chest radiograph shows approximately 20% pneumothorax. We will place a narrow pneumothorax 8-Micronesian catheter and go ahead and connect her to a Pleur-evac just because she has some residual pleural fluid. Hopefully, this will lead reinflation of her pneumothorax. Job ID: [id number]
--- NOTE | 2018-08-16 10:27 | RAD ---
CHEST 1 VIEW: HISTORY: Pleural effusion. COMPARISON: 08/12/2018. FINDINGS: Moderate-sized right-sided pneumothorax has developed since the prior study. There is some persisten t right pleural fluid as well as some persistent subsegmental atelectasis in the right mid and lower lung zone. Stable-appearing left chest. Heart size is within normal limits. IMPRESSION: Interval development of moderate right-sided pneumothorax with some persistent pleural effusion and r ight lung atelectasis. Findings were discussed with Dr. Bello by phone at 9:20 a.m. JOLEEN MERCADO
[2018-08-16] MEDS: Morphine 4 MG/ML VIAL SLOW IVP PRN ×2 (11:25→21:00)
--- NOTE | 2018-08-16 11:28 | OP ---
DATE OF PROCEDURE: 08/16/2018 PROCEDURE PERFORMED: 8-Wolof pneumothorax tube placement. INDICATION: Pneumothorax. Consent was obtained from the patient for the procedure. This was listed as potential complication and possible chest tube placement was placed on the consent form. Her right chest was prepped with chlorhexidine x2 on her anterior axillary line. Rib was palpated. 1% lidocaine was used to localize and anesthetize the pleura. Once this was done, a small incision was made with a #11 blade. An 8-Wolof pneumothorax catheter was inserted and sewn in place. This connected initially to a Heimlich valve, which showed good respiratory excursion. This then was connected to an atrium pleural evacuation chamber. She drained another 300 mL of pleural fluid immediately. Repeat chest radiograph shows reinflation of the lung with residual haziness at the right base. We will repeat a chest x-ray in the morning. Tolerated procedure well. Sterile dressing was applied. Job ID: [id number]
--- NOTE | 2018-08-16 11:34 | RAD ---
PORTABLE CHEST: DATE: 08/16/2018. PROVIDED CLINICAL HISTORY: Chest tube placement. FINDINGS: Comparison is made with the study performed earlier same date. The previously demonstrated right-sade ed pneumothorax is prominently diminished in size. There is a moderate-large right pleural effusion. Small-bore right-sided chest tube parallels the right lateral chest wall superiorly. Additional si gnificant interval change with respect to prior is not evident. IMPRESSION: Decrease in right-sided pneumothorax status post chest tube placement. POS: TPC
[2018-08-16] MEDS ORDERED: Ondansetron PF 4 MG/2 ML Vial IVP PRN (16:52)
[2018-08-16] MEDS: Ondansetron ODT 4 MG TAB PO PRN (17:19)
[2018-08-16] MEDS: Rosuvastatin 10 MG TAB PO SCH (20:59)
[2018-08-16] MEDS: hydrOXYzine 10 MG TAB PO PRN (20:59)
[2018-08-16] MEDS: Famotidine 20 MG TAB PO SCH (20:59)
[2018-08-17] MEDS: Acetaminophen 325 MG TAB PO SCH ×4 (00:21→17:52)
[2018-08-17] MEDS: Morphine 4 MG/ML VIAL SLOW IVP PRN ×3 (01:11→14:57)
[2018-08-17] MEDS: Levothyroxine Sodium 50 MCG TAB PO SCH (05:30)
--- NOTE | 2018-08-17 06:00 | PDOC.FM ---
- Subjective Subjective: Pt states she has some pain in her chest where they performed the thoracentesis and chest tube. She reports her breathing is somewhat better. She denies chest pain or palpitations this morning. - Objective MAR Reviewed: Yes Vital Signs & Weight: Vital Signs (12 hours) Temp Pulse Resp BP BP Pulse Ox 08/17/18 05:30 95 111/65 08/17/18 03:55 97.9 F 55 L 15 129/64 95 08/17/18 01:12 101 H 122/63 08/16/18 20:49 97.7 F 87 16 139/60 97 Weight Weight 55.537 kg I&O: 08/15/18 08/16/18 08/17/18 06:59 06:59 06:59 Intake Total 860 1500 720 Output Total 820 1480 2260 Balance 40 20 -1540 Result Diagrams: 08/17/18 05:31 08/17/18 05:31 Phys Exam - Physical Examination Constitutional: NAD HEENT: moist MMs Neck: no JVD Improving breath sounds on the right Cardiovascular: RRR, no significant murmur Gastrointestinal: soft, no distention, positive bowel sounds mild diffuse tenderness Musculoskeletal: no edema, pulses present Neurological: moves all 4 limbs Psychiatric: normal affect, A&O x 3 Skin: cap refill <2 seconds Dx/Plan (1) Acute and chronic respiratory failure with hypoxia Code(s): J96.21 - ACUTE AND CHRONIC RESPIRATORY FAILURE WITH HYPOXIA Status: Acute (2) Atrial fibrillation Code(s): I48.91 - UNSPECIFIED ATRIAL FIBRILLATION Status: Chronic (3) CHF (congestive heart failure) Code(s): I50.9 - HEART FAILURE, UNSPECIFIED Status: Chronic (4) COPD (chronic obstructive pulmonary disease) Status: Chronic (5) HLD (hyperlipidemia) Code(s): E78.5 - HYPERLIPIDEMIA, UNSPECIFIED Status: Chronic (6) HTN (hypertension) Code(s): I10 - ESSENTIAL (PRIMARY) HYPERTENSION Status: Chronic (7) Hx of laryngeal cancer Code(s): Z85.21 - PERSONAL HISTORY OF MALIGNANT NEOPLASM OF LARYNX Status: Chronic - Plan Plan: This is a 78 yo female with a pmh of HTN, afib, CHF, pulmonary fibrosis, COPD Acut on chronic hypoxemic respirator failure 2/2 CHF exacerbation -Improving, stable on 2.5L nc overnight, plan to wean to baseline of 2L -Recent pacemaker placed -On PO lasix Pleuritis -Associated pleural effusions, repeat CXR shows unchanged pleural effusions, no procedure at this time -s/p thoracentesis and chest tube -Tylenol and naproxen for pain -Pulmonology consulted, will appreciate their recommendations -Dr. Bello recommends ablation vs. watchmans, should be considered with her sap sd analyst -Consider DC on Sunday CAD PVD CHF -LVEF 55-60% at Med 06/27/18, with no mention of diastolic heart failure -Echo here shows LVEF of 50/55%, and pulmonary hypertension, no mention of systolic or diastolic HF Pulmonary fibrosis -Follow up with Dr. Bello outpt HTN -Continue home meds HLD -Continue home crestor COPD -Duonebs PRN -40 py hx, quit 8 years ago Afib -Pt on home meds, continues to have elevated HR, increasing Metoprolol to 50mg BID MAISHA -Will monitor and reasses, continue PO hydration Hyperkalemia -Holding potassium Addendum - Attending - Attending Attestation Date/Time: 08/17/18 4660 I personally evaluated the patient and discussed the management with Dr. Pham I agree with the History, Examination, Assessment and Plan documented above with any addition or exceptions noted below.Patient is improving s/p thoracotomy tube placement good lung expansion no distress . Appreciate Pulmonary recommendations
[2018-08-17 06:10] LABS: #Eosinphils 0.2 thou/uL (0.0-0.7); #Lymphocytes 1.1 thou/uL (1.20-3.40); #Neutrophils 9.3 thou/uL (1.40-6.50); %Basophils 0.2 % (0.0-1.0); %Eosinophils 2.2 % (0.0-10.0); %Lymphocytes 9.2 % (21.0-51.0); %Monocytes 8.4 % (0.0-10.0); %Neutrophils 80.1 % (42.0-75.0); Hemoglobin 13.6 g/dL (12.0-16.0); Mean Corpuscular HGB CONC 30.4 g/dL (32.0-36.0); Mean Corpuscular Hemoglobin 26.8 pg (27.0-31.0); Mean Corpuscular Volume 88.2 fL (78.0-98.0); Mean Platelet Volume 9.3 fL (7.4-10.4); Platelet Count 277 thou/uL (130-400); RBC Distribution Width 17.5 % (11.5-14.5); Red Blood Cell (RBC) Count 5.08 mill/uL (4.20-5.40); White Blood Cell (WBC) Count 11.6 thou/uL (4.8-10.8)
[2018-08-17 06:30] LABS: Anion Gap 12 mmol/L (10-20); BUN (Urea Nitrogen) 22 mg/dL (9.8-20.1); Calc. Creatinine Clearance 32 mL/min (70-130); Calcium 9.2 mg/dL (7.8-10.44); Carbon Dioxide 29 mmol/L (23-31); Chloride 103 mmol/L (98-107); Estimated GFR-MDRD 41; Glucose 102 mg/dL (83-110); Potassium 5.7 mmol/L (3.5-5.1); Sodium 138 mmol/L (136-145)
[2018-08-17] MEDS: Apixaban 5 MG TAB PO SCH ×2 (09:11→21:17)
[2018-08-17] MEDS: Furosemide 40 MG TAB PO SCH (09:11)
[2018-08-17] MEDS: Folic Acid 1 MG TAB PO SCH (09:11)
[2018-08-17] MEDS: Metoprolol Tartrate 50 MG TAB PO SCH (09:11)
[2018-08-17] MEDS: Aspirin 81 mg Enteric Coated Tablet PO SCH (09:15)
[2018-08-17 12:21] LABS: ALT (SGPT) 10 U/L (8-55); AST (SGOT) 31 U/L (5-34); Albumin 2.8 g/dL (3.4-4.8); Alkaline Phosphatase 122 U/L (40-150); Bilirubin, Direct 0.3 mg/dL (0.1-0.3); Bilirubin, Total 0.8 mg/dL (0.2-1.2); Lipase 420 U/L (8-78); Protein, Total 6.1 g/dL (6.0-8.3)
--- NOTE | 2018-08-17 15:05 | PRG ---
DATE OF SERVICE: 08/17/2018 SUBJECTIVE: Ms. Cronin does not like the chest tube in the right chest says the site is painful. She is drained out about half a liter of pleural fluid overnight. OBJECTIVE: VITAL SIGNS: Temperature is 97.7, pulse 104, respirations 18, O2 saturation 95% on 2.5 L, and blood pressure 120/60. HEENT: Unremarkable. NECK: No JVD. LUNGS: Diminished breath sounds in the right base compared to left. CARDIAC: S1 and S2. Regular. ABDOMEN: Soft. EXTREMITIES: No edema. LABORATORY DATA: White blood cell count 11.6, hematocrit 44.8, and platelet count 277. Pleural fluid showed a pH of 7.6, total protein of 3, LDH 148, glucose 82. Her sodium is 138, potassium 5.7, chloride 103, CO2 of 29, BUN 22, creatinine 1.3, and glucose 102. ASSESSMENT: The patient has a right pleural effusion. It would appear that it is most likely associated with her heart failure, although the numbers are more exudative than transudative. PLAN: I will get a chest x-ray tomorrow and see how the effusion is doing. We will contemplate taking the tube out tomorrow. She needs to have her potassium level monitored given her hyperkalemia today. Job ID: [id number]
[2018-08-17] MEDS: Famotidine 20 MG TAB PO SCH (21:17)
[2018-08-17] MEDS: Metoprolol Tartrate 100 MG TAB PO SCH (21:17)
[2018-08-17] MEDS: Rosuvastatin 10 MG TAB PO SCH (21:17)
[2018-08-18] MEDS: Acetaminophen 325 MG TAB PO SCH ×4 (01:13→18:14)
[2018-08-18 05:11] LABS: #Eosinphils 0.3 thou/uL (0.0-0.7); #Lymphocytes 1.3 thou/uL (1.20-3.40); #Monocytes 1.3 thou/uL (0.11-0.59); #Neutrophils 13.7 thou/uL (1.40-6.50); %Basophils 0.1 % (0.0-1.0); %Eosinophils 1.6 % (0.0-10.0); %Lymphocytes 8.1 % (21.0-51.0); %Monocytes 7.8 % (0.0-10.0); %Neutrophils 82.5 % (42.0-75.0); Hemoglobin 13.1 g/dL (12.0-16.0); Mean Corpuscular HGB CONC 30.5 g/dL (32.0-36.0); Mean Corpuscular Hemoglobin 27.5 pg (27.0-31.0); Mean Corpuscular Volume 90.3 fL (78.0-98.0); Platelet Count 257 thou/uL (130-400); RBC Distribution Width 17.6 % (11.5-14.5); Red Blood Cell (RBC) Count 4.75 mill/uL (4.20-5.40); White Blood Cell (WBC) Count 16.6 thou/uL (4.8-10.8)
[2018-08-18] MEDS: Levothyroxine Sodium 50 MCG TAB PO SCH (05:30)
[2018-08-18 05:33] LABS: Anion Gap 14 mmol/L (10-20); BUN (Urea Nitrogen) 30 mg/dL (9.8-20.1); Calc. Creatinine Clearance 22 mL/min (70-130); Carbon Dioxide 25 mmol/L (23-31); Chloride 98 mmol/L (98-107); Cholesterol 65 mg/dl (< 200 Desired); Estimated GFR-MDRD 26; Glucose 83 mg/dL (83-110); HDL Cholesterol 33 mg/dL (>60 Neg Risk); LDL Cholesterol, Calculated 18 mg/dL; Potassium 5.8 mmol/L (3.5-5.1); Sodium 131 mmol/L (136-145); Triglycerides 70 mg/dL (Less than 150)
[2018-08-18] MEDS: Morphine 4 MG/ML VIAL SLOW IVP PRN (06:17)
--- NOTE | 2018-08-18 06:22 | PDOC.FM ---
- Subjective Subjective: Pt states she is continuing to have abdominal pain this morning, worsened by the RUQ US. She reports feeling poorly and states her breathing is about the same. - Objective MAR Reviewed: Yes Vital Signs & Weight: Vital Signs (12 hours) Temp Pulse Resp BP Pulse Ox 08/18/18 03:45 97.8 F 104 H 14 105/52 L 94 L 08/17/18 23:20 97.5 F L 98 12 132/62 98 08/17/18 20:00 97.5 F L 120 H 18 117/67 95 Weight Weight 54.839 kg I&O: 08/16/18 08/17/18 08/18/18 06:59 06:59 06:59 Intake Total 1500 1020 960 Output Total 1480 2670 700 Balance 20 -1650 260 Result Diagrams: 08/18/18 05:00 08/18/18 05:00 Phys Exam - Physical Examination Constitutional: NAD dry mm Neck: no JVD Decreased breath sounds on the right lung base irregular rhythm, regular rate Gastrointestinal: soft, no distention, positive bowel sounds tenderness to palpation of RUQ Musculoskeletal: no edema, pulses present Neurological: moves all 4 limbs Psychiatric: A&O x 3 Skin: cap refill <2 seconds Dx/Plan (1) Acute and chronic respiratory failure with hypoxia Code(s): J96.21 - ACUTE AND CHRONIC RESPIRATORY FAILURE WITH HYPOXIA Status: Acute (2) Atrial fibrillation Code(s): I48.91 - UNSPECIFIED ATRIAL FIBRILLATION Status: Chronic (3) CHF (congestive heart failure) Code(s): I50.9 - HEART FAILURE, UNSPECIFIED Status: Chronic (4) COPD (chronic obstructive pulmonary disease) Status: Chronic (5) HLD (hyperlipidemia) Code(s): E78.5 - HYPERLIPIDEMIA, UNSPECIFIED Status: Chronic (6) HTN (hypertension) Code(s): I10 - ESSENTIAL (PRIMARY) HYPERTENSION Status: Chronic (7) Hx of laryngeal cancer Code(s): Z85.21 - PERSONAL HISTORY OF MALIGNANT NEOPLASM OF LARYNX Status: Chronic - Plan Plan: This is a 78 yo female with a pmh of HTN, afib, CHF, pulmonary fibrosis, COPD Acut on chronic hypoxemic respirator failure 2/2 CHF exacerbation -Improving, stable on 2.5L nc overnight, plan to wean to baseline of 2L -Recent pacemaker placed -On PO lasix Pleuritis -Associated pleural effusions, repeat CXR shows unchanged pleural effusions, no procedure at this time -s/p thoracentesis and chest tube -Tylenol and naproxen for pain -Pulmonology consulted, will appreciate their recommendations -Dr. Bello recommends ablation vs. watchmans, should be considered with her family psychologist -Consider DC on Sunday CAD PVD CHF -LVEF 55-60% at Med 06/27/18, with no mention of diastolic heart failure -Echo here shows LVEF of 50/55%, and pulmonary hypertension, no mention of systolic or diastolic HF Pulmonary fibrosis -Follow up with Dr. Bello outpt HTN -Continue home meds HLD -Continue home crestor COPD -Duonebs PRN -40 py hx, quit 8 years ago Afib -Pt on home meds, continues to have elevated HR, increasing Metoprolol to 50mg BID and increasing diltiazem to 180 daily MAISHA -Worsening MAISHA -Stopping lasix, 500mL at 250ml/hr this AM -Re assess BMP at 1200 today Hyperkalemia -Holding potassium -BMP at 1200 today, if continues to increase, will add fluid and lasix Pancreatitis -Lipase of 420, tolerating PO, abdominal pain -Pending RUQ US -No clear etiology at this time -BISAP score of 3, will continue maintenance fluids after 500ml -Monitor for fluid overload while giving fluids Addendum - Attending - Attending Attestation Date/Time: 08/18/18 1201 I personally evaluated the patient and discussed the management with I agree with the History, Examination, Assessment and Plan documented above with any addition or exceptions noted below. Patient now demonstrating MAISHA and pancreatisis will need opinion of GS note LFTs bili wnl however GBUS abnormal.consider HIDDA scan. History of Atrial fib with RVR s/p pacemaker at [facility] Dr Ramos rate better controlled will consult Cardiology further recommendations as well.
[2018-08-18] MEDS: Lactated Ringer's 500 ML IV SCH ×5 (06:32→17:39)
--- NOTE | 2018-08-18 07:44 | ULT ---
GALLBLADDER ULTRASOUND: INDICATION: Pain of the abdomen. FINDINGS: There is no evidence of focal hepatic lesion. The gallbladder is moderately distended with a thicken ed wall and pericholecystic edema. Gallbladder wall thickness is 5 mm. Duncan's sign is reported as positive by the digital advertising specialist. No shadowing cholelithiasis is seen. There is intrahepatic biliary du ctal dilatation. The common duct measures 7 mm which is dilated. IMPRESSION: 1. Findings indicative of cholecystitis. No shadowing cholelithiasis. 2. Biliary ductal dilatation. Correlate with biliary laboratory values. 3. Surgical consultation is warranted. POS: HAILY
--- NOTE | 2018-08-18 08:16 | RAD ---
PORTABLE CHEST: INDICATION: Pneumonia. Followup pneumothorax. COMPARISON: 08/16/2018. FINDINGS: Cardiomegaly. Vascular congestion with interstitial congestion. Opacification of the right lung bas e consistent with right effusion and right basilar atelectasis and consolidation. A small caliber ch est tube overlies the lateral right chest with the tip possibly just beneath the pleural surface, alt jodi this cannot be confirmed. No significant pneumothorax is identified. The left lung remains well aerated and expanded with evidence of diffuse interstitial edema/infiltrat e. IMPRESSION: The above chest findings appear stable from 08/16/2018. POS: OFF
[2018-08-18] MEDS ORDERED: Lactated Ringer's 500 ML IV SCH (08:30)
[2018-08-18] MEDS: Polyethylene Glycol 3350 17 GM Packet PO SCH (08:31)
[2018-08-18] MEDS: Folic Acid 1 MG TAB PO SCH (08:32)
[2018-08-18] MEDS: Aspirin 81 mg Enteric Coated Tablet PO SCH (08:32)
[2018-08-18] MEDS: Apixaban 5 MG TAB PO SCH ×2 (08:32→20:37)
[2018-08-18] MEDS: Metoprolol Tartrate 100 MG TAB PO SCH ×2 (09:52→20:37)
[2018-08-18] MEDS: Lactated Ringer's 1,000 ML IV SCH ×2 (10:39→20:37)
[2018-08-18] MEDS ORDERED: Lactated Ringer's 1,000 ML IV SCH (12:00)
[2018-08-18] MEDS: Piperacillin/Tazobactam 3.375 GM in Sodium Chloride 0.9% 100 ML IVPB SCH ×2 (12:31→18:14)
[2018-08-18 14:04] LABS: Anion Gap 14 mmol/L (10-20); BUN (Urea Nitrogen) 30 mg/dL (9.8-20.1); Calc. Creatinine Clearance 22 mL/min (70-130); Calcium 8.7 mg/dL (7.8-10.44); Carbon Dioxide 29 mmol/L (23-31); Chloride 96 mmol/L (98-107); Estimated GFR-MDRD 27; Glucose 79 mg/dL (83-110); Potassium 4.7 mmol/L (3.5-5.1); Sodium 134 mmol/L (136-145)
--- NOTE | 2018-08-18 14:26 | PDOC.EVN ---
Event Note - Event Note Event Note: Patient seen and examined and full dictation to follow. Her gallbladder wall thickening and pericholecystic fluid is most certainly from pulmonary hypertension and right sided heart failure. Her right pleural effusion related as well. Certainly her elevated lipase is in no ways due to gallbladder with lack of stones. If pain persists would order CT of the abdomen +/- Hida but she would only be candidate for cholecystostomy tube not cholecystectomy. Will follow prn.
--- NOTE | 2018-08-18 14:59 | PRG ---
DATE OF SERVICE: 08/18/2018 SUBJECTIVE: The patient is sleeping in bed, did not appear to be uncomfortable. OBJECTIVE: VITAL SIGNS: Temperature 97.4, pulse 113, respirations 18, O2 saturation 95% on 2 L, blood pressure 122/79. HEENT: Unremarkable. NECK: No JVD. LUNGS: Clear anteriorly on the left. Right side diminished at the base. CARDIAC: S1 and S2 regular. ABDOMEN: Soft. EXTREMITIES: No edema. DIAGNOSTIC DATA: Chest x-ray shows continued right effusion with resolution of previous pneumothorax. ASSESSMENT: Right pneumothorax, post thoracentesis. PLAN: I went ahead and flushed the chest tube out with some sterile normal saline to see if we get it working again. I will repeat a chest x-ray tomorrow. If we do not see improvement, then the chest tube will probably just need to be pulled out. Cytology is pending. Job ID: [id number]
--- NOTE | 2018-08-18 18:50 | CON ---
DATE OF CONSULTATION: 08/18/2018 REASON FOR CONSULTATION: Atrial fibrillation with RVR. PRIMARY DESIZING MACHINE OPERATOR: Shorty Ramos MD HISTORY OF PRESENT ILLNESS: Ms. Cronin is a very pleasant 78-year-old white female, who comes to the hospital for shortness of breath. She had a pacemaker placed two Fridays ago and on the post pacemaker film, it was found that she had a large right pleural effusion, so eventually she had to be admitted and had this fluid tapped by Dr. Bello and eventually developed pneumothorax and had to have another PleurX catheter placed for this. She has been in atrial fibrillation since she has been here. Heart rate has been anywhere from the low 80s to the high 130s. Currently, her heart rate has been maintained a little bit higher than normal, so Cardiology has been consulted for better rate control. PAST MEDICAL HISTORY: 1. Paroxysmal atrial fibrillation per patient's report, but it looks more like chronic atrial fibrillation. She has a single lead pacemaker. 2. CAD, status post stenting in the past. 3. PVD, status post bilateral lower extremity stenting in the past. 4. Laryngeal cancer, status post radiation in 2010. 5. Rectocele with pessary. 6. CHF. 7. Diastolic heart failure. 8. Pulmonary fibrosis. 9. Hypertension. 10. Hyperlipidemia. 11. COPD. 12. Sick sinus syndrome. PAST SURGICAL HISTORY: 1. Pacemaker placement recently. 2. Peripheral stents. 3. D and C x2. 4. Appendectomy. 5. Hysterectomy. 6. PleurX catheter and thoracentesis. FAMILY HISTORY: Mother with early coronary artery disease. SOCIAL HISTORY: A pack-a-day smoker for 40 years, quit 8 years ago. Social alcohol use. No drug use. OUTPATIENT MEDICATIONS: 1. Eliquis 5 mg b.i.d. 2. Aspirin 81 a day. 3. Folic acid. 4. Furosemide 40 mg a day. 5. Levothyroxine 50 mcg a day. 6. Metoprolol tartrate 25 mg b.i.d. 7. Potassium chloride 20 mEq a day. 8. Rosuvastatin 10 mg a day. 9. Atarax p.r.n. ALLERGIES: ADHESIVE TAPE. REVIEW OF SYSTEMS: A 12-point review of systems was done and was all negative unless stated in the history of present illness. PHYSICAL EXAMINATION: VITAL SIGNS: Temperature 97.9, pulse 83, respiratory rate 19, saturating 94% on 2 L nasal cannula, blood pressure 126/58. GENERAL: Awake, alert, oriented x3. No distress. HEENT: Normocephalic and atraumatic. NECK: Supple. LUNGS: Clear. CARDIOVASCULAR: S1 and S2. No S3 or S4. Irregularly irregular heart rate in the 80s to low 100s. ABDOMEN: Soft with positive bowel sounds. EXTREMITIES: No edema. SKIN: Warm and dry. LABORATORY DATA: Laboratory work was reviewed. CBC with a white count of 16, hemoglobin of 13, hematocrit 42, platelet count 257. Her white count has been coming up steadily in the last couple days, it was in the 5 to 7 range. ABGs from several days ago was reviewed. Chemistries were reviewed. Creatinine 0.89 back on the and now to 1.8. Potassium is normal. GFR of 27 currently, but 61 on the . Lactic acid on arrival was normal at 1.5. Lipase was 420 yesterday and BNP was only 352 on arrival. UA showed moderate leukocyte esterase, 11 to 20 white cells. Echocardiogram was reviewed, EF of 50% to 55% with severe biatrial enlargement, mild MR, [id number] TR, and RVSP of 60 mmHg. Most recent abdominal ultrasound shows dilated biliary duct with fluid around the gallbladder, but no gallstones. Telemetry was reviewed. She has been in atrial fibrillation since she was placed on telemetry and heart rates have been in the 80s to 130s. Currently in the 90s. ASSESSMENT AND PLAN: 1. Chronic atrial fibrillation, currently reasonably well rate controlled, lenient rate control. We will continue current dose of diltiazem I think and metoprolol has been increased to 100 b.i.d. I think this should be sufficient. She is anticoagulated on Eliquis 5 mg b.i.d. My concern would be having acalculous cholecystitis making her tachycardic at times given the pain that she has had. 2. No need to repeat an echocardiogram. She had one recently and shows normal EF and all the expected finding somebody with pulmonary hypertension. Thank you for letting me to participate in the care of your patient. We will follow. Job ID: [id number]
--- NOTE | 2018-08-18 19:30 | CON ---
DATE OF CONSULTATION: 08/18/2018 CHIEF COMPLAINT: Abdominal pain, severe. HISTORY OF PRESENT ILLNESS: This is a 78-year-old female who has been admitted to the hospital for a few days, initially admitted on 08/11/2018 for shortness of breath. She also had some pleuritic right-sided chest pain. She is a previous patient of Dr. Bello. She ended up having to have thoracentesis, then Pleur-evac chest tube placement by Dr. Bello in the right chest. Her echocardiogram shows moderate pulmonary hypertension and a moderately enlarged right and left atrium. The patient herself states that she has a history of CHF. The pain was described as 8/10 sharp in the right upper quadrant. It is better now. It was radiating down her right side and then across her abdomen. No epigastric pain. She had mild nausea. No vomiting. She has been having some diarrhea. PAST MEDICAL HISTORY: Includes atrial fibrillation, coronary artery disease, laryngeal cancer, rectocele, CHF, pulmonary fibrosis, hypertension, COPD with frequent exacerbations. SURGICAL HISTORY: Pacemaker, cardiac stent, D and C, appendectomy, hysterectomy. SOCIAL HISTORY: Former smoker. Occasional alcohol. No other drugs. REVIEW OF SYSTEMS: Ten system review of systems is otherwise negative, unless described above. MEDICATIONS: See list. PHYSICAL EXAMINATION: VITAL SIGNS: Pulse 113, blood pressure 122/79, afebrile, respirations 18, O2 saturation 95% on 2 L. HEENT: Sclerae anicteric. Oropharynx clear. NECK: No lymphadenopathy. CHEST: Coarse breath sounds. HEART: Regular rate. ABDOMEN: Soft. There is some tenderness in the right upper quadrant. There is localized guarding. There is no rebound. No diffuse abdominal pain or peritoneal signs. LABORATORY DATA: White blood cell count 16, hemoglobin 13, platelet count is 257. Sodium 134, potassium 4.7, creatinine 1.8. Liver function tests are normal. Lipase was 420 today, it had been normal back on admission on . Ultrasound today shows gallbladder wall thickening, pericholecystic fluid. No gallstones. Common bile duct 7 mm. ASSESSMENT: Gallbladder wall thickening, pericholecystic fluid is likely from her pulmonary hypertension, potential right-sided heart failure. This is in some way likely associated with right-sided pleural effusion of uncertain etiology. I do not think she has a primary issue of her gallbladder. Certainly her gallbladder without gallstones is not the cause of this elevation of her lipase and lipase elevation of 420 is not really consistent with pancreatitis. Having said that, there are no plans for cholecystectomy. If right upper quadrant pain persists, she probably needs CT of her abdomen. We will follow michael Job ID: [id number]
[2018-08-18] MEDS: Rosuvastatin 10 MG TAB PO SCH (20:37)
[2018-08-18] MEDS: Famotidine 20 MG TAB PO SCH (20:37)
[2018-08-19] MEDS: Piperacillin/Tazobactam 3.375 GM in Sodium Chloride 0.9% 100 ML IVPB SCH ×5 (01:00→19:48)
[2018-08-19] MEDS: Acetaminophen 325 MG TAB PO SCH ×5 (02:17→23:58)
[2018-08-19] MEDS: Levothyroxine Sodium 50 MCG TAB PO SCH (06:01)
--- NOTE | 2018-08-19 06:58 | PDOC.FM ---
- Subjective Subjective: pt sleeping comfortably in bed, family at bedside reports her mentation is not at baseline. She is not currently complaining of abdominal pain, but does report the chest tube is bothering her. - Objective Vital Signs & Weight: Vital Signs (12 hours) Temp Pulse Resp BP BP Pulse Ox 08/19/18 02:50 98.1 F 92 18 124/68 95 08/18/18 20:00 97.8 F 105 H 18 128/60 96 Weight Weight 57.153 kg I&O: 08/17/18 08/18/18 08/19/18 06:59 06:59 06:59 Intake Total 5083 628 8183 Output Total 2670 700 950 Balance -1056 745 6510 Result Diagrams: 08/19/18 07:42 08/19/18 07:42 Phys Exam - Physical Examination Constitutional: NAD HEENT: moist MMs Neck: no JVD Respiratory: clear to auscultation bilateral Cardiovascular: RRR, no significant murmur Gastrointestinal: soft, non-tender Musculoskeletal: no edema Neurological: moves all 4 limbs Lymphatic: no nodes Psychiatric: normal affect Skin: no rash Dx/Plan (1) Acute and chronic respiratory failure with hypoxia Code(s): J96.21 - ACUTE AND CHRONIC RESPIRATORY FAILURE WITH HYPOXIA Status: Acute (2) Atrial fibrillation Code(s): I48.91 - UNSPECIFIED ATRIAL FIBRILLATION Status: Chronic (3) COPD (chronic obstructive pulmonary disease) Status: Chronic (4) HLD (hyperlipidemia) Code(s): E78.5 - HYPERLIPIDEMIA, UNSPECIFIED Status: Chronic (5) HTN (hypertension) Code(s): I10 - ESSENTIAL (PRIMARY) HYPERTENSION Status: Chronic (6) PVD (peripheral vascular disease) Code(s): I73.9 - PERIPHERAL VASCULAR DISEASE, UNSPECIFIED Status: Chronic (7) Pulmonary fibrosis Code(s): J84.10 - PULMONARY FIBROSIS, UNSPECIFIED Status: Chronic - Plan Plan: Acut on chronic hypoxemic respirator failure 2/2 CHF exacerbation -Improving, wean to baseline of 2L -Recent pacemaker placed -On PO lasix Pleuritis -Associated pleural effusions, s/p thoracentesis and chest tube -Tylenol and naproxen for pain -Pulmonology consulted, appreciate their recommendations CAD PVD CHF -LVEF 55-60% at Med 06/27/18, with no mention of diastolic heart failure -Echo here shows LVEF of 50/55%, and pulmonary hypertension, no mention of systolic or diastolic HF Pulmonary fibrosis -Follow up with Dr. Bello outpt HTN -Continue home meds HLD -Continue home crestor COPD -Duonebs PRN -40 py hx, quit 8 years ago Afib -Pt on home meds, continues to have elevated HR, increased Metoprolol to 50mg BID and increasing diltiazem to 180 daily -would benefit from ablation vs. 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
--- NOTE | 2018-08-19 07:46 | RAD ---
RADIOGRAPH CHEST 1 VIEW: DATE: 08/19/2018 TIME: 7:19 AM HISTORY: 78-year-old female with pneumonia. Follow-up abnormal chest radiograph. COMPARISON: 08/18/2018 FINDINGS: Opacification of lower two thirds of right lung, by combination of large pleural effusion and underly ing consolidation. Diffusely prominent interstitial markings in the aerated portion of right upper lobe and throughout left lung. Pulmonary venous engorgement. No consolidation in left lung. No pneumo thorax. Left subclavian single lead pacemaker. Small caliber right pleural catheter is external to the right rib cage. No interval change overall. IMPRESSION: 1. Right pleural catheter is external to the right rib cage. 2. No interval change overall. 3. Large right pleural effusion and underlying total opacification of underlying two thirds of right lung, which could be severe atelectasis or a combination of pneumonia and atelectasis. 4. Diffuse pulmonary venous congestion.
[2018-08-19 07:57] LABS: #Eosinphils 0.3 thou/uL (0.0-0.7); #Lymphocytes 1.3 thou/uL (1.20-3.40); #Monocytes 0.8 thou/uL (0.11-0.59); #Neutrophils 10.5 thou/uL (1.40-6.50); %Basophils 0.2 % (0.0-1.0); %Eosinophils 2.3 % (0.0-10.0); %Lymphocytes 9.6 % (21.0-51.0); %Monocytes 6.3 % (0.0-10.0); %Neutrophils 81.5 % (42.0-75.0); Hemoglobin 11.5 g/dL (12.0-16.0); Mean Corpuscular HGB CONC 30.6 g/dL (32.0-36.0); Mean Corpuscular Hemoglobin 27.4 pg (27.0-31.0); Mean Corpuscular Volume 89.5 fL (78.0-98.0); Platelet Count 248 thou/uL (130-400); Red Blood Cell (RBC) Count 4.21 mill/uL (4.20-5.40); White Blood Cell (WBC) Count 12.9 thou/uL (4.8-10.8)
[2018-08-19 08:16] LABS: Anion Gap 13 mmol/L (10-20); BUN (Urea Nitrogen) 29 mg/dL (9.8-20.1); Calc. Creatinine Clearance 24 mL/min (70-130); Calcium 8.3 mg/dL (7.8-10.44); Carbon Dioxide 26 mmol/L (23-31); Chloride 100 mmol/L (98-107); Estimated GFR-MDRD 28; Glucose 81 mg/dL (83-110); Potassium 4.2 mmol/L (3.5-5.1); Sodium 135 mmol/L (136-145)
[2018-08-19] MEDS: Apixaban 5 MG TAB PO SCH ×2 (08:50→19:48)
[2018-08-19] MEDS: Aspirin 81 mg Enteric Coated Tablet PO SCH (08:50)
[2018-08-19] MEDS: Metoprolol Tartrate 100 MG TAB PO SCH ×2 (08:51→19:48)
[2018-08-19] MEDS: Folic Acid 1 MG TAB PO SCH (08:51)
[2018-08-19] MEDS: Polyethylene Glycol 3350 17 GM Packet PO SCH (09:50)
--- NOTE | 2018-08-19 14:06 | CT ---
CT CHEST WITHOUT CONTRAST CLINICAL INDICATION: Right lower chest pain without history of injury. COMPARISON: 02/19/2014 FINDINGS: Aorta: Dense atherosclerotic vascular calcifications are seen in the coronary arteries as well as inv olving the thoracic aorta and great vessels. There is generalized ectasia of the descending thoracic aorta with slightly greater aneurysmal dilatation of the mid descending thoracic aorta measu ring 4.1 cm in greatest transverse dimension. The heart is enlarged, and there is a left subclavian cardiac pacemaking device now noted in place with single RV lead. Lungs: A moderately large right pleural effusion is now present with associated consolidation. Area o f consolidation may be attributable to passive atelectasis, but pneumonia cannot be entirely excluded. Emphysematous changes are seen within the lungs bilaterally. There are linear peripherally located densities seen in the right upper lobe and at the left lung base probably due to areas of mild scarring and chronic lung changes. There is symmetric biapical pleural and parenchymal scarring noted. There is an 8 mm noncalcified pulmonary nodule seen in the left upper lobe (image 30, series 3) which was also seen on the prior study, but measurement on prior study was approximately 7 mm. No additional pulmonary nodule is seen. Mediastinum: Lack of intravenous contrast limits evaluation of the mediastinal structures, but there is a mildly enlarged subcarinal lymph node seen measuring 1.4 cm in short axis dimension which was also present on the prior exam. This also mildly enlarged pretracheal lymph node present slightly lar kushal in size on today's exam which measures 1 cm in short axis dimension. Thyroid gland: Small in size and not well evaluated. Osseous structures: No acute process. Chest wall: No abnormality visualized. Upper abdomen: Grossly normal nonenhanced CT appearance Greatest measurement of 4.1 cm. IMPRESSION: 1. Moderately large right pleural effusion with associated consolidation. Consolidation may be relate d to passive atelectasis versus pneumonia. 2. 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 3. Cardiomegaly. 4. Approximately 8 mm pulmonary nodule left upper lobe which is mildly increased in size compared to prior exam. Greatest obtained measurement was 7 mm. 5. Chronic lung changes.
[2018-08-19] MEDS: hydrOXYzine 10 MG TAB PO PRN (14:25)
--- NOTE | 2018-08-19 14:28 | PRG ---
DATE OF SERVICE: 08/19/2018 Ms. Cronin is resting quietly in bed this morning. She is in no acute distress. She was admitted with possible pancreatitis secondary to cholecystitis. We did, however, consult Dr. Flores of the Surgery Team. We certainly appreciate his input. Dr. Flores believes that the findings on ultrasound relating to her gallbladder is related to her right-sided heart failure. He did not feel that she had a primary issue with her gallbladder. He did not plan for a cholecystectomy. He did recommend, though if she continues to have right upper quadrant pain that she get a CT of the abdomen. This morning, she appears to have none, in fact appears quite comfortable and ready for possible transfer to a step-down unit for physical therapy. Job ID: [id number]
--- NOTE | 2018-08-19 16:08 | PRG ---
DATE OF SERVICE: 08/19/2018 SUBJECTIVE: Ms. Cronin has no complaint. She was complaining of right posterior inferior rib pain. She has hyperesthesias in this area, but I do not see any rash that looks like shingles rash. Her chest tube was removed intact by me. This did not lead to resolution of her symptoms. She is no distress. She still has changes of an effusion on the right on her chest x-ray. Her left lung is clear. Heart, regular rhythm. Abdomen is soft. LABORATORY DATA: White count is 12.9, hemoglobin 11.5, platelets 248. Sodium 135, potassium 4.2, chloride 100, bicarb 26, BUN 29, creatinine 1.76. I have ordered a chest CT to further delineate the abnormalities on the right. I am hopeful to be able to see a rib fracture, but if there is a pathological lesion there, we could probably see that. I suspect all of her current symptoms and radiographic findings are related to diastolic heart failure and atrial fibrillation. I would not recommend a repeat thoracentesis. Her pleural fluid numbers suggest that this is a transudate and I suspect it is related to her atrial fibrillation and diastolic heart failure. Her activity needs to be increased. I will consult Physical Therapy. Job ID: [id number]
--- NOTE | 2018-08-19 16:50 | PDOC.CTH ---
Cardiology Progress Note - Subjective No new issues. Pain is better since CT taken out. - Objective Vital Signs Temp Pulse Resp BP Pulse Ox 08/19/18 11:55 97.6 F 97 16 108/67 95 08/19/18 07:35 96.3 F L 77 18 125/61 96 Weight 126 lb 08/18/18 08/19/18 08/20/18 06:59 06:59 06:59 Intake Total 960 2090 Output Total 700 950 Balance 260 1140 - Physical Examination General/Neuro: alert & oriented x3, NAD Neck: no JVD present Lungs: unlabored respirations Heart: other: (irreg irreg. ) Abdomen: NT/ND Extremities: other: (no edema) - Telemetry Telemetry Rhythm: Afib HR 90's. - Labs Result Diagrams: 08/19/18 07:42 08/19/18 07:42 Troponin/CKMB Troponin I 0.025 ng/mL (< 0.028) 08/11/18 18:05 - Assessment/Plan 1. Chronic afib, rate controlled. 2. RV failure 3. Pleural effusion PLAN: - Pleural effusion likely from RV failure and diastolic CHF. - Elevated RVSP. - Afib rate controlled. - Eliquis for stroke prophylaxis. - Will follow.
[2018-08-19] MEDS: Rosuvastatin 10 MG TAB PO SCH (19:48)
[2018-08-19] MEDS: Famotidine 20 MG TAB PO SCH (19:48)
[2018-08-20] MEDS: Piperacillin/Tazobactam 3.375 GM in Sodium Chloride 0.9% 100 ML IVPB SCH ×4 (02:39→20:17)
[2018-08-20] MEDS: Acetaminophen 325 MG TAB PO SCH ×4 (05:12→23:07)
[2018-08-20] MEDS: Levothyroxine Sodium 50 MCG TAB PO SCH (05:13)
--- NOTE | 2018-08-20 06:52 | PDOC.FM ---
- Subjective Subjective: pt sleeping in bed, reports being disturbed frequently last night, denies SOB or abdominal pain - Objective Vital Signs & Weight: Vital Signs (12 hours) Temp Pulse Resp BP BP Pulse Ox 08/20/18 02:56 97.4 F L 88 18 123/56 L 96 08/19/18 19:48 97.6 F 98 18 116/69 97 Weight Weight 57.652 kg I&O: 08/18/18 08/19/18 08/20/18 06:59 06:59 06:59 Intake Total 960 2090 980 Output Total 080 671 1746 Balance 260 1140 -520 Result Diagrams: 08/20/18 06:15 08/20/18 06:15 Phys Exam - Physical Examination Constitutional: NAD HEENT: moist MMs Neck: no JVD Respiratory: clear to auscultation bilateral Cardiovascular: RRR, no significant murmur Gastrointestinal: soft, non-tender Musculoskeletal: pulses present, edema present Neurological: moves all 4 limbs Psychiatric: normal affect Skin: no rash Dx/Plan (1) Acute and chronic respiratory failure with hypoxia Code(s): J96.21 - ACUTE AND CHRONIC RESPIRATORY FAILURE WITH HYPOXIA Status: Acute (2) Atrial fibrillation Code(s): I48.91 - UNSPECIFIED ATRIAL FIBRILLATION Status: Chronic (3) COPD (chronic obstructive pulmonary disease) Status: Chronic (4) HLD (hyperlipidemia) Code(s): E78.5 - HYPERLIPIDEMIA, UNSPECIFIED Status: Chronic (5) HTN (hypertension) Code(s): I10 - ESSENTIAL (PRIMARY) HYPERTENSION Status: Chronic (6) PVD (peripheral vascular disease) Code(s): I73.9 - PERIPHERAL VASCULAR DISEASE, UNSPECIFIED Status: Chronic (7) Pulmonary fibrosis Code(s): J84.10 - PULMONARY FIBROSIS, UNSPECIFIED Status: Chronic - Plan Plan: Acut on chronic hypoxemic respirator failure 2/2 CHF exacerbation -stable on room air -Recent pacemaker placed -lasix DCd on 08/17 for concern of worsening kidney fxn, consider restarting a small dose Pleuritis -Associated pleural effusions, s/p thoracentesis and chest tube - chest tube removed 08/20 -Tylenol and naproxen for pain -Pulmonology consulted, appreciate their recommendations CAD PVD CHF -LVEF 55-60% at Med 06/27/18, with no mention of diastolic heart failure -Echo here shows LVEF of 50/55%, and pulmonary hypertension, no mention of systolic or diastolic HF Pulmonary fibrosis -Follow up with Dr. Bello outpt HTN -Continue home meds HLD -Continue home crestor COPD -Duonebs PRN -40 py hx, quit 8 years ago Afib -Pt on home meds, continues to have elevated HR, increased Metoprolol to 100mg BID and increased diltiazem to 180 daily -would benefit from ablation vs. watchmans, to be considered with her wash driller outpt MAISHA -stable Cr Hyperkalemia -improved Pancreatitis -Lipase of 420, tolerating PO, abdominal pain -RUQ US reveals thickened GB wall, surg consulted -GB most likely edematous from fluid overload 2/2 RHF - monitor, if pain continues consider CT +/- HIDA Dispo: stable for DC when placement available
[2018-08-20 06:59] LABS: #Eosinphils 0.4 thou/uL (0.0-0.7); #Lymphocytes 0.9 thou/uL (1.20-3.40); #Monocytes 0.6 thou/uL (0.11-0.59); #Neutrophils 7.6 thou/uL (1.40-6.50); %Basophils 0.2 % (0.0-1.0); %Eosinophils 3.8 % (0.0-10.0); %Lymphocytes 9.3 % (21.0-51.0); %Monocytes 6.7 % (0.0-10.0); %Neutrophils 79.9 % (42.0-75.0); Hemoglobin 11.5 g/dL (12.0-16.0); Mean Corpuscular HGB CONC 31.2 g/dL (32.0-36.0); Mean Corpuscular Hemoglobin 27.9 pg (27.0-31.0); Mean Corpuscular Volume 89.5 fL (78.0-98.0); Mean Platelet Volume 8.9 fL (7.4-10.4); Platelet Count 266 thou/uL (130-400); RBC Distribution Width 17.9 % (11.5-14.5); Red Blood Cell (RBC) Count 4.11 mill/uL (4.20-5.40); White Blood Cell (WBC) Count 9.5 thou/uL (4.8-10.8)
[2018-08-20 07:18] LABS: Anion Gap 17 mmol/L (10-20); BUN (Urea Nitrogen) 24 mg/dL (9.8-20.1); Calc. Creatinine Clearance 25 mL/min (70-130); Calcium 8.4 mg/dL (7.8-10.44); Carbon Dioxide 21 mmol/L (23-31); Chloride 103 mmol/L (98-107); Estimated GFR-MDRD 30; Glucose 71 mg/dL (83-110); Potassium 3.6 mmol/L (3.5-5.1); Sodium 137 mmol/L (136-145)
[2018-08-20] MEDS: Polyethylene Glycol 3350 17 GM Packet PO SCH (08:57)
[2018-08-20] MEDS: Folic Acid 1 MG TAB PO SCH (08:57)
[2018-08-20] MEDS: Apixaban 5 MG TAB PO SCH ×2 (08:57→20:18)
[2018-08-20] MEDS: Aspirin 81 mg Enteric Coated Tablet PO SCH (08:57)
[2018-08-20] MEDS: Metoprolol Tartrate 100 MG TAB PO SCH ×2 (08:57→20:18)
--- NOTE | 2018-08-20 12:12 | PRG ---
DATE OF SERVICE: 08/20/2018 Ms. Cronin looks and feels much better this morning. We are awaiting PT, OT placement. No new issues have arisen and as stated, Ms. Cronin looks and feels much better. Job ID: [id number]
[2018-08-20] MEDS ORDERED: Furosemide 20 MG TAB PO SCH (13:00)
--- NOTE | 2018-08-20 14:54 | PRG ---
DATE OF SERVICE: 08/20/2018 SUBJECTIVE: Ms. Cronin has no new complaints. OBJECTIVE: VITAL SIGNS: She is afebrile, heart rate 81, respiratory rate is 20, oximetry is 94% on 2 L blood pressure is 118/58. Intake and outputs negative 520 mL. LUNGS: Remarkable for decreased breath sounds at the right base. HEART: Regular rhythm. ABDOMEN: Soft. LABORATORY DATA: Chest CT yesterday showed significant residual fluid posterior flares out. Reviewed fluid results again. This is a transudative effusion by numbers in my opinion. Cell count was not drawn as ordered. Cytology fluid that was in the vacuum bottle. Apparently was inadvertently discarded, so the pleural fluid pathology was run on a very small volume of pleural fluid. 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 I have explained that the small cell presenting as an isolated pleural effusion is extremely uncommon, especially when there is no lung mass visible on chest CT done recently as an outpatient before this effusion developed. They will take what small amount of fluid they have left and we ran the cytology. I have explained the above to her. Hopefully, I do not have to do another thoracentesis. I would go up one interspace lower where I found fluid last time since this fluid tends to accumulate in a subpulmonic fashion when she sits upright. Hopefully, we can avoid another pneumothorax. Job ID: [id number]
[2018-08-20] MEDS: hydrOXYzine 10 MG TAB PO PRN (15:18)
--- NOTE | 2018-08-20 18:40 | PDOC.CTH ---
Cardiology Progress Note - Subjective She is doing better. Breathing slightly improved. - Objective Vital Signs Temp Pulse Pulse Pulse Resp BP BP 08/20/18 15:17 84 87 112/59 L 143/65 H 08/20/18 11:50 97.4 F L 81 20 08/20/18 07:58 96.8 F L 93 16 BP BP Pulse Ox Pulse Ox 08/20/18 15:17 93 L 08/20/18 11:50 118/58 L 94 L 08/20/18 07:58 109/46 L 96 Weight 127 lb 1.6 oz 08/19/18 08/20/18 08/21/18 06:59 06:59 06:59 Intake Total 2090 980 460 Output Total 950 1500 353 Balance 1140 -520 107 - Physical Examination General/Neuro: alert & oriented x3, NAD Neck: no JVD present Lungs: CTA, unlabored respirations Heart: other: (Irreg Irreg) Abdomen: NT/ND Extremities: other: (no edema) - Telemetry Telemetry Rhythm: Afib HR 70's. - Labs Result Diagrams: 08/20/18 06:15 08/20/18 06:15 Troponin/CKMB Troponin I 0.025 ng/mL (< 0.028) 08/11/18 18:05 - Assessment/Plan 1. Chronic afib, rate controlled. 2. RV failure 3. Pleural effusion 4. MAISHA on CKD, improving. PLAN: - Pleural effusion likely from RV failure and diastolic CHF. - Elevated RVSP. - Afib rate controlled. - Eliquis for stroke prophylaxis. - Continue current lasix dose.
[2018-08-20] MEDS: Rosuvastatin 10 MG TAB PO SCH (20:18)
[2018-08-20] MEDS: Famotidine 20 MG TAB PO SCH (20:18)
[2018-08-21] MEDS: Piperacillin/Tazobactam 3.375 GM in Sodium Chloride 0.9% 100 ML IVPB SCH (02:20)
[2018-08-21] MEDS: Loperamide HCl 2 MG CAP PO PRN (04:10)
[2018-08-21 04:30] LABS: #Eosinphils 0.4 thou/uL (0.0-0.7); #Lymphocytes 1.3 thou/uL (1.20-3.40); #Monocytes 0.7 thou/uL (0.11-0.59); #Neutrophils 6.2 thou/uL (1.40-6.50); %Eosinophils 5.1 % (0.0-10.0); %Monocytes 8.5 % (0.0-10.0); %Neutrophils 71.4 % (42.0-75.0); Hemoglobin 10.8 g/dL (12.0-16.0); Mean Corpuscular Hemoglobin 27.4 pg (27.0-31.0); Mean Corpuscular Volume 88.4 fL (78.0-98.0); Platelet Count 270 thou/uL (130-400); RBC Distribution Width 17.9 % (11.5-14.5); Red Blood Cell (RBC) Count 3.93 mill/uL (4.20-5.40); White Blood Cell (WBC) Count 8.7 thou/uL (4.8-10.8)
[2018-08-21 04:44] LABS: Anion Gap 10 mmol/L (10-20); BUN (Urea Nitrogen) 18 mg/dL (9.8-20.1); Calc. Creatinine Clearance 25 mL/min (70-130); Calcium 8.3 mg/dL (7.8-10.44); Carbon Dioxide 29 mmol/L (23-31); Chloride 103 mmol/L (98-107); Estimated GFR-MDRD 30; Glucose 91 mg/dL (83-110); Potassium 3.2 mmol/L (3.5-5.1); Sodium 139 mmol/L (136-145)
[2018-08-21] MEDS: Levothyroxine Sodium 50 MCG TAB PO SCH (05:39)
[2018-08-21] MEDS: Acetaminophen 325 MG TAB PO SCH ×4 (05:40→23:20)
--- NOTE | 2018-08-21 07:24 | PDOC.FM ---
- Subjective Subjective: pt sleeping comfortably in bed, tolerating PO. no pain - Objective Vital Signs & Weight: Vital Signs (12 hours) Temp Pulse Resp BP Pulse Ox 08/20/18 20:00 98.1 F 112 H 20 122/80 92 L Weight Weight 56.336 kg I&O: 08/20/18 08/21/18 08/22/18 06:59 06:59 06:59 Intake Total 980 700 Output Total 1500 903 Balance -520 -203 Result Diagrams: 08/21/18 04:11 08/21/18 04:11 Phys Exam - Physical Examination Constitutional: NAD HEENT: moist MMs Neck: full ROM Gastrointestinal: no distention Musculoskeletal: no edema Neurological: moves all 4 limbs Psychiatric: normal affect Skin: no rash Dx/Plan (1) Acute and chronic respiratory failure with hypoxia Code(s): J96.21 - ACUTE AND CHRONIC RESPIRATORY FAILURE WITH HYPOXIA Status: Acute (2) Atrial fibrillation Code(s): I48.91 - UNSPECIFIED ATRIAL FIBRILLATION Status: Chronic (3) COPD (chronic obstructive pulmonary disease) Status: Chronic (4) HLD (hyperlipidemia) Code(s): E78.5 - HYPERLIPIDEMIA, UNSPECIFIED Status: Chronic (5) HTN (hypertension) Code(s): I10 - ESSENTIAL (PRIMARY) HYPERTENSION Status: Chronic (6) PVD (peripheral vascular disease) Code(s): I73.9 - PERIPHERAL VASCULAR DISEASE, UNSPECIFIED Status: Chronic (7) Pulmonary fibrosis Code(s): J84.10 - PULMONARY FIBROSIS, UNSPECIFIED Status: Chronic - Plan Plan: Acut on chronic hypoxemic respirator failure 2/2 CHF exacerbation -intermittently requiring O2 -LVEF 55-60% at Med 06/27/18, with no mention of diastolic heart failure -Echo here shows LVEF of 50/55%, and pulmonary hypertension, no mention of systolic or diastolic HF -lasix, Kdur pleural effusion in the setting of pulmonary fibrosis - s/p thoracentesis and chest tube - chest tube removed 08/20, repeat CT shows fluid remaining -Tylenol and naproxen for pain -Pulmonology consulted, appreciate their recommendations - concern for transudative, SCC effusion. cytology pending Afib -Pt on home meds, continues to have elevated HR, increased Metoprolol to 100mg BID and increased diltiazem to 180 daily - recent pacemaker placement -would benefit from ablation vs. watchmans, to be considered with her plumber assistant outpt HTN -Continue home meds HLD, CAD -Continue home crestor COPD -Duonebs PRN -40 py hx, quit 8 years ago MAISHA -stable Cr Hyperkalemia -improved Pancreatitis -Lipase of 420, tolerating PO, abdominal pain -RUQ US reveals thickened GB wall, surg consulted -GB most likely edematous from fluid overload 2/2 RHF - monitor, if pain continues consider CT +/- HIDA Dispo: stable for DC when placement available
[2018-08-21] MEDS: Folic Acid 1 MG TAB PO SCH (09:22)
[2018-08-21] MEDS: Metoprolol Tartrate 100 MG TAB PO SCH ×2 (09:22→20:05)
[2018-08-21] MEDS: Potassium Chloride 20 MEQ TAB PO SCH (09:22)
[2018-08-21] MEDS: Apixaban 5 MG TAB PO SCH ×2 (09:22→20:05)
[2018-08-21] MEDS: Aspirin 81 mg Enteric Coated Tablet PO SCH (09:22)
[2018-08-21] MEDS: Furosemide 20 MG TAB PO SCH (09:22)
[2018-08-21] MEDS: Polyethylene Glycol 3350 17 GM Packet PO SCH (09:23)
--- NOTE | 2018-08-21 11:46 | PRG ---
DATE OF SERVICE: Ms. Cronin is resting quietly in bed. She is in no distress. Dr. Bello has decided to perform another thoracentesis for further evaluation of the fluid. This will be accomplished later this afternoon. Job ID: [id number]
[2018-08-21] MEDS ORDERED: Sodium Chloride 0.65% Nasal 44 ML BOT EA NARE PRN (12:42)
[2018-08-21 13:18] LABS: BF Color Red; Body Fluid Source Pleural Fluid; Clarity Cloudy/Turbid (Clear); RBC Background Count 0.006; RBC Count-Automated 162000 /cumm; Tube # EDTA; WBC Background Count 0.01; WBC/NonHematic-Auto 1200 /cumm
[2018-08-21 13:50] LABS: Fluid, pH - Pleural Fld 7.37 (7.60 - 7.66)
[2018-08-21 13:55] LABS: Fluid, Protein 2.4 g/dL (Not Available)
[2018-08-21 14:06] LABS: BF Segmented Neutrophils 18 %; Cell Count Non Hematic 48 %; Eosinophils 10 %; Lymphocytes 24 %
--- NOTE | 2018-08-21 17:44 | PDOC.CTH ---
Cardiology Progress Note - Subjective Her breathing is better today after she had more fluid taken out. - Objective Vital Signs Temp Pulse Resp BP Pulse Ox 08/21/18 11:41 97.9 F 100 17 115/62 95 08/21/18 07:44 97.6 F 100 17 109/63 93 L Weight 124 lb 3.2 oz 08/20/18 08/21/18 08/22/18 06:59 06:59 06:59 Intake Total 980 700 Output Total 1500 903 Balance -520 -203 - Physical Examination General/Neuro: alert & oriented x3, NAD Neck: no JVD present Lungs: unlabored respirations Heart: other: (irreg irreg) Abdomen: NT/ND Extremities: other: (no edema) - Telemetry Telemetry Rhythm: Afib HR 80's. - Labs Result Diagrams: 08/21/18 04:11 08/21/18 04:11 Troponin/CKMB Troponin I 0.025 ng/mL (< 0.028) 08/11/18 18:05 - Assessment/Plan 1. Chronic afib, rate controlled. 2. RV failure 3. Pleural effusion 4. MAISHA on CKD, improving. 5. Possible malignant effusion. PLAN: - Thoracenthesis again today, sent for cytology. - Continue rate control otherwise. - Replace Mine
[2018-08-21] MEDS: hydrOXYzine 10 MG TAB PO PRN (20:04)
[2018-08-21] MEDS: Rosuvastatin 10 MG TAB PO SCH (20:05)
[2018-08-21] MEDS: Famotidine 20 MG TAB PO SCH (20:05)
[2018-08-22] MEDS: Loperamide HCl 2 MG CAP PO PRN ×2 (03:10→09:01)
[2018-08-22] MEDS: Acetaminophen 325 MG TAB PO SCH ×3 (03:10→17:43)
[2018-08-22 05:27] LABS: #Eosinphils 0.4 thou/uL (0.0-0.7); #Lymphocytes 1.2 thou/uL (1.20-3.40); #Monocytes 0.7 thou/uL (0.11-0.59); #Neutrophils 3.6 thou/uL (1.40-6.50); %Basophils 0.4 % (0.0-1.0); %Eosinophils 6.2 % (0.0-10.0); %Monocytes 11.5 % (0.0-10.0); %Neutrophils 61.9 % (42.0-75.0); Hemoglobin 10.8 g/dL (12.0-16.0); Mean Corpuscular HGB CONC 31.3 g/dL (32.0-36.0); Mean Corpuscular Hemoglobin 27.6 pg (27.0-31.0); Mean Corpuscular Volume 88.3 fL (78.0-98.0); Mean Platelet Volume 7.9 fL (7.4-10.4); Platelet Count 276 thou/uL (130-400); White Blood Cell (WBC) Count 5.9 thou/uL (4.8-10.8)
[2018-08-22 05:43] LABS: Anion Gap 10 mmol/L (10-20); BUN (Urea Nitrogen) 16 mg/dL (9.8-20.1); Calc. Creatinine Clearance 25 mL/min (70-130); Calcium 8.2 mg/dL (7.8-10.44); Carbon Dioxide 26 mmol/L (23-31); Chloride 103 mmol/L (98-107); Estimated GFR-MDRD 31; Glucose 92 mg/dL (83-110); Potassium 3.3 mmol/L (3.5-5.1); Sodium 136 mmol/L (136-145)
[2018-08-22] MEDS: Levothyroxine Sodium 50 MCG TAB PO SCH (06:29)
--- NOTE | 2018-08-22 06:41 | PDOC.FM ---
- Subjective Subjective: pt sleeping comfortably in bed, reports occasional diarrhea and mild abdominal pain. denies SOB - Objective Vital Signs & Weight: Vital Signs (12 hours) Temp Pulse Resp BP Pulse Ox 08/22/18 04:00 97.4 F L 88 20 109/59 L 97 08/21/18 20:00 97.6 F 95 20 101/50 L 99 Weight Weight 55.429 kg I&O: 08/20/18 08/21/18 08/22/18 06:59 06:59 06:59 Intake Total 980 700 960 Output Total 1500 903 700 Balance -520 -203 260 Result Diagrams: 08/22/18 05:13 08/22/18 05:13 Phys Exam - Physical Examination Constitutional: NAD HEENT: moist MMs Neck: full ROM Respiratory: no wheezing, clear to auscultation bilateral Cardiovascular: no significant murmur Gastrointestinal: soft, non-tender, no distention Musculoskeletal: pulses present Neurological: moves all 4 limbs Psychiatric: normal affect Skin: no rash Dx/Plan (1) Acute and chronic respiratory failure with hypoxia Code(s): J96.21 - ACUTE AND CHRONIC RESPIRATORY FAILURE WITH HYPOXIA Status: Acute (2) Atrial fibrillation Code(s): I48.91 - UNSPECIFIED ATRIAL FIBRILLATION Status: Chronic (3) COPD (chronic obstructive pulmonary disease) Status: Chronic (4) HLD (hyperlipidemia) Code(s): E78.5 - HYPERLIPIDEMIA, UNSPECIFIED Status: Chronic (5) HTN (hypertension) Code(s): I10 - ESSENTIAL (PRIMARY) HYPERTENSION Status: Chronic (6) PVD (peripheral vascular disease) Code(s): I73.9 - PERIPHERAL VASCULAR DISEASE, UNSPECIFIED Status: Chronic (7) Pulmonary fibrosis Code(s): J84.10 - PULMONARY FIBROSIS, UNSPECIFIED Status: Chronic - Plan Plan: Acut on chronic hypoxemic respirator failure 2/2 CHF exacerbation -intermittently requiring O2 -LVEF 55-60% at Med 06/27/18, with no mention of diastolic heart failure -Echo here shows LVEF of 50/55%, and pulmonary hypertension, no mention of systolic or diastolic HF -lasix, Kdur Exudative pleural effusion in the setting of pulmonary fibrosis - s/p thoracentesis and chest tube - chest tube removed 08/20, repeat CT shows fluid remaining -Tylenol and naproxen for pain -Pulmonology consulted, appreciate their recommendations - repeat thoracentesis on 08/21 shows exudative effusion, cytology pending Afib -Pt on home meds, continued to have elevated HR, increased Metoprolol to 100mg BID and increased diltiazem to 180 daily - recent pacemaker placement -would benefit from ablation vs. watchmans, to be considered with her cruise agent outpt HTN -Continue home meds HLD, CAD -Continue home crestor COPD -Duonebs PRN -40 py hx, quit 8 years ago MAISHA -stable Cr Hyperkalemia -improved Pancreatitis -Lipase of 420, tolerating PO, abdominal pain -RUQ US reveals thickened GB wall, surg consulted -GB most likely edematous from fluid overload 2/2 RHF - monitor, if pain returns consider CT +/- HIDA Dispo: stable for DC when placement available
[2018-08-22] MEDS: Potassium Chloride 20 MEQ TAB PO SCH (09:01)
[2018-08-22] MEDS: Apixaban 5 MG TAB PO SCH ×2 (09:01→21:52)
[2018-08-22] MEDS: Folic Acid 1 MG TAB PO SCH (09:02)
[2018-08-22] MEDS: Aspirin 81 mg Enteric Coated Tablet PO SCH (09:02)
[2018-08-22] MEDS: Polyethylene Glycol 3350 17 GM Packet PO SCH (09:02)
[2018-08-22] MEDS: Furosemide 20 MG TAB PO SCH (09:02)
[2018-08-22] MEDS: Ondansetron ODT 4 MG TAB PO PRN (09:02)
[2018-08-22] MEDS: Metoprolol Tartrate 100 MG TAB PO SCH ×2 (09:03→21:52)
--- NOTE | 2018-08-22 10:46 | OP ---
DATE OF PROCEDURE: 08/21/2018 INDICATIONS FOR PROCEDURE: Ms. Cronin has pathology on the tiny specimen that they received is felt to be suspicious for malignancy, so I recommended repeat thoracentesis. DESCRIPTION OF PROCEDURE: She was placed in a sitting position. Consent forms were signed. Risks of recurrent pneumothorax were explained, but I feel FIGO-1 interspace lower than where I tapped her last thoracentesis. We will find a subpulmonic effusion. Right posterior hemithorax was prepped with chlorhexidine. 10 mL of 1% lidocaine was used to anesthetize the skin and the pleura. Fluid was localized with a 22-gauge needle. No air was aspirated. A [id number] 8-Romansh catheter was inserted in the pleural space. 1 L of serosanguineous pleural fluid was easily evacuated into a vacuum bottle. Fluid was sent for Gram stain, culture, LDH, protein, cell count, and cytology. She tolerated the procedure well. No air was aspirated into the vacuum bottle and contrast to the last procedure, which led me to believe that she would have a pneumothorax. There is no chest x-ray, it will be done given there is no clinical evidence of puncture of lung. Hopefully, we can put to rest the concern about possible small-cell malignancy. Honestly, she never had a small cell malignancy present as a pleural effusion without an obvious lung mass. I suspect this is serosanguineous nature of fluids because of placement of the Pleur-Evac thoracentesis catheter while she is on Eliquis. Job ID: [id number]
--- NOTE | 2018-08-22 11:32 | CT ---
CT OF THE THORAX WITHOUT IV CONTRAST INDICATION: Concern for small cell cancer COMPARISON: Prior CT of the thorax dated August 19, 2018 and February 09, 2014 TECHNIQUE: Multiple CT images were obtained of the thorax without IV contrast. Axial and coronal refo rmatted images were constructed from the raw data. FINDINGS: LUNGS: There is a stable 7.8 mm pulmonary nodule in the left upper lobe. There is stable emphysema. T here is stable consolidation within the right middle lobe and right lower lobe. There is stable reticular nodularity seen within the superior segment right lower lobe suspicious for bronchial plugg ing. Pleural spaces: There is stable moderate right pleural effusion Lymph nodes: There is stable enlarged lymph nodes of the pretracheal region and subcarinal region. Heart and great vessels: The lack of IV contrast limits interrogation of the heart and great vessels. There is scattered thoracic and coronary artery calcifications. 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 An additional small fusiform aneurysm is off of the more proximal descending thoracic aorta on image 25 of series 2. There is diffuse ectasia of the descending thoracic aorta. Upper abdomen: Visualized aspects of the upper abdomen appear within normal limits. Osseous structures: There is diffuse osteopenia. No acute osseous abnormality is evident. IMPRESSION: 1. Stable right lower lobe and right middle lobe airspace consolidation suspicious for pneumonia with a moderate size right-sided pleural effusion. 2. Reticular nodularity within the upper segment of the right lower lobe is suspicious for bronchial plugging. Component of aspiration cannot be entirely excluded. 3. Stable mediastinal lymphadenopathy 4. Stable 7.8 mm left upper lobe pulmonary nodule 5. Stable emphysema
--- NOTE | 2018-08-22 12:46 | PRG ---
DATE OF SERVICE: 08/22/2018 SUBJECTIVE: Clinically, Ms. Cronin remains stable. She did undergo a repeat thoracentesis yesterday. 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 She also underwent a repeat chest CT earlier this morning. Findings were stable 7.8 mm pulmonary nodule in the left upper lobe. There were stable emphysema. There were some reticular nodularity seen within the superior segment right lower lobe suspicious for bronchial plugging. There is a stable moderate right pleural effusion. We will await further workup from Dr. Bello. Job ID: [id number]
[2018-08-22] MEDS ORDERED: ISOVUE-370 76%-LOCM 1 ML ONE (14:22)
[2018-08-22] MEDS ORDERED: Iopamidol 370 76% 100 ML VIAL ONE (14:22)
[2018-08-22 14:23] VITALS: BMI 23.1
--- NOTE | 2018-08-22 16:00 | PRG ---
DATE OF SERVICE: 08/22/2018 SUBJECTIVE: Ms. Cronin has no new complaints. Received results on her pleural fluid cytology this morning. This is interpreted as small cell. First set of pleural fluid was interpreted most likely as small cell or neuroendocrine tumor. 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 She says she wants to go to the [facility], but I have explained to her that with this malignancy, it would be better if she at least starts treatment here. OBJECTIVE: VITAL SIGNS: She is afebrile. Heart rate is 82, respiratory rate is 17, oximetry is 96 on 2 L, blood pressure 122/64. LUNGS: Remarkable for decreased breath sounds at the right base. HEART: Irregular rhythm. ABDOMEN: Soft. EXTREMITIES: Without edema. I repeated a chest CT today. I still do not see any clear-cut mass, but I would say it would diagnostic for malignant process. She does have mediastinal lymph nodes, but all of them are less than 2 cm. It is unclear what stage disease she has at this point, but probably is appropriate to go ahead and start therapy considering the aggressive nature of small cell lung cancer and the fact that a recent CT showed no significant pleural fluid on the right. She will be transferred to the Oncology unit. I met with her twice today and answered her questions. Job ID: [id number]
--- NOTE | 2018-08-22 18:06 | PDOC.CTH ---
Cardiology Progress Note - Subjective No new issues. - Objective Vital Signs Temp Pulse Resp BP Pulse Ox 08/22/18 16:00 97.5 F L 94 18 99/56 L 92 L 08/22/18 12:00 97.2 F L 88 19 94 L 08/22/18 08:00 97.2 F L 82 17 122/64 96 Admit Weight 126 lb 6.4 oz Weight 122 lb 3.2 oz 08/21/18 08/22/18 08/23/18 06:59 06:59 06:59 Intake Total 700 1160 600 Output Total 903 800 350 Balance -203 360 250 - Physical Examination General/Neuro: NAD Neck: no JVD present Lungs: unlabored respirations Heart: other: (irreg irreg) Abdomen: NT/ND Extremities: other: (no edema) - Telemetry Telemetry Rhythm: Afib HR 80's. - Labs Result Diagrams: 08/22/18 05:13 08/22/18 05:13 Troponin/CKMB Troponin I 0.025 ng/mL (< 0.028) 08/11/18 18:05 - Assessment/Plan 1. Chronic afib, rate controlled. 2. RV failure 3. Pleural effusion, likely malignant. 4. MAISHA on CKD, improving. 5. Small cell lung Ca. PLAN: - Continue rate control. - Will sign off. - Please call with any questions.
[2018-08-22] MEDS ORDERED: Potassium Chloride 20 MEQ TAB PO SCH (18:15)
--- NOTE | 2018-08-22 21:26 | CT ---
Contrast-enhanced images abdomen and pelvis. HISTORY: Neuroendocrine tumor. Contrast-enhanced images of the abdomen pelvis demonstrate a moderate size right-sided pleural effusi on. Coronary artery calcination seen. Atherosclerotic calcifications seen in the aortic valve and root of the aorta. Extensive descending a ortic calcifications also seen. There is marked enlargement of the right atrium and lesser degree left atrium. The liver and spleen are unremarkable. There is abnormal thickening of the gallbladder wall concerning for possible cholecystitis without de finite visible evidence of obvious gallstones. There is a an area of hypodensity seen in the uncinate process of the pancreas. Pancreatic malignancy cannot be excluded. Bilateral iliac endovascular stents are in place. Bilateral renal cortical cysts or hypodense area seen. Vascular calcifications seen in both renal arteries. IMPRESSION: 1: Right-sided pleural effusion. 2: Enlarged right and left cardiac atria 3: Pancreatic uncinate process hypodense area concerning for possible malignancy (PNET).
[2018-08-22] MEDS: Rosuvastatin 10 MG TAB PO SCH (21:52)
[2018-08-22] MEDS: Famotidine 20 MG TAB PO SCH (21:52)
--- NOTE | 2018-08-23 04:19 | CON ---
DATE OF CONSULTATION: HISTORY OF PRESENT ILLNESS: This is a 78-year-old female with history of atrial fibrillation and recently had pacemaker implanted. She was admitted on 08/11/2018 with shortness of breath and weakness, and chest x-ray showed moderate right and small left pleural effusion. The patient underwent first thoracentesis on 08/16/2018, yielding 600 mL of clear yellow fluid from right hemithorax. Cytology showed rare atypical cells consistent with metastatic carcinoma with feature suggestive of a small cell carcinoma. The patient underwent a second thoracentesis on 08/21/2018, yielding 1 L of serosanguinous fluid. 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 CT scan of chest on 08/22/2018, showed small right lower lobe and right middle lobe airspace consolidation, suspicious for pneumonia and moderate-sized right pleural effusion. A reticular nodularity is reported within the upper segment of the right lower lobe, suggestive of bronchial plugging. A 7.8 mm left upper lobe pulmonary nodule was noted and enlarged lymph nodes were reported in pretracheal region and subcarinal region, size not given. At the present time, the patient is complaining of pain in the right chest for the past 3 months. She has lost 8 pounds of weight. She has a 68-cfby-fuka history of smoking, but quit 8 years ago. She had colonoscopy 5 years ago and was advised to have another colonoscopy recently that she declined. PAST MEDICAL HISTORY: COPD, pulmonary fibrosis, atrial fibrillation, coronary artery disease, peripheral vascular disease, ? 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 PAST SURGICAL HISTORY: Includes pacemaker implant very recently, percutaneous coronary intervention, peripheral stent in bilateral lower extremities, appendectomy, and hysterectomy. PERSONAL, FAMILY AND SOCIAL HISTORY: The patient has 40-pack history of smoking, but quit 8 years ago. She drinks rarely. She lives by herself and until recently she has been able to take care of herself. CURRENT MEDICATIONS: 1. Eliquis. 2. Ecotrin. 3. Cardizem 80 mg p.o. daily. 4. Pepcid 20 mg p.o. daily. 5. Folic acid 1 mg p.o. daily. 6. Lasix 20 mg p.o. daily. 7. Hydroxyzine 10 mg p.o. b.i.d. 8. Synthroid 50 mcg p.o. daily. 9. Naprosyn 500 mg p.o. b.i.d. 10. Zofran 4 mg q.4 hours p.r.n. 11. Crestor 10 mg p.o. daily. FAMILY HISTORY: Negative for malignancy. Her of lung cancer. REVIEW OF SYSTEMS: 10-point system review was performed and findings were as stated above. She does admit of longstanding backache, which has not changed. She also admits of shortness of breath and fatigue. PHYSICAL EXAMINATION: GENERAL: The patient appears appropriate for her age and is alert and oriented. VITAL SIGNS: Height 5 feet 1 inch. Weight 122 pounds. Body surface area 1.54 m2. Temperature 97.7, pulse 83, respirations 18, and blood pressure 148/74. HEENT: Unremarkable. LYMPH NODES: There is no peripheral lymphadenopathy in cervical, supraclavicular, axillary or inguinal area. CHEST: Emphysematous. Breath sounds in percussion not diminished at both bases, especially on the right side. HEART: S1 and S2. ABDOMEN: Soft. No hepatosplenomegaly. EXTREMITIES: Without pedal edema. LABORATORY DATA: CBC shows WBC 5900 with hemoglobin of 10.8 g and platelet count of 276,000. Differential showed 61.9% neutrophils and 20% lymphocytes. Chemistry profile on 08/18/2018 showed potassium of 5.8, BUN 30, creatinine 1.85, calcium 9. 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 She does not have obvious pulmonary masses, though there is 7.8 mm left upper lobe nodule and some mediastinal adenopathy. We need more information on what type of laryngeal cancer she had in 2010, but it is highly unlikely to have metastasized 8 years later. The patient is very determined to go to [facility] and she certainly does not want any treatment started locally. She has agreed to be staged with MRI of the brain, bone scan, and CT scan of chest, abdomen and pelvis, which has been ordered. I have asked the patient case manager to talk to the patient and try to refer her to [facility]. Certainly, her small cell type of cancer can be treated locally and outcome is unlikely to be different whether she is treated here or at [facility]. Thanks very much for asking me to participate in this patient's care. Job ID: [id number]
[2018-08-23] MEDS: Acetaminophen 325 MG TAB PO SCH ×5 (05:31→23:57)
[2018-08-23] MEDS: Levothyroxine Sodium 50 MCG TAB PO SCH (05:32)
[2018-08-23 05:33] LABS: #Eosinphils 0.3 thou/uL (0.0-0.7); #Lymphocytes 1.5 thou/uL (1.20-3.40); #Monocytes 0.9 thou/uL (0.11-0.59); #Neutrophils 3.7 thou/uL (1.40-6.50); %Basophils 0.3 % (0.0-1.0); %Eosinophils 4.9 % (0.0-10.0); %Lymphocytes 23.4 % (21.0-51.0); %Monocytes 13.4 % (0.0-10.0); Hemoglobin 10.9 g/dL (12.0-16.0); Mean Corpuscular HGB CONC 30.2 g/dL (32.0-36.0); Mean Corpuscular Hemoglobin 26.8 pg (27.0-31.0); Mean Corpuscular Volume 88.8 fL (78.0-98.0); Mean Platelet Volume 8.1 fL (7.4-10.4); Platelet Count 315 thou/uL (130-400); Red Blood Cell (RBC) Count 4.05 mill/uL (4.20-5.40); White Blood Cell (WBC) Count 6.4 thou/uL (4.8-10.8)
[2018-08-23 06:27] LABS: ALT (SGPT) 8 U/L (8-55); AST (SGOT) 20 U/L (5-34); Albumin 2.6 g/dL (3.4-4.8); Alkaline Phosphatase 118 U/L (40-150); Anion Gap 10 mmol/L (10-20); BUN (Urea Nitrogen) 15 mg/dL (9.8-20.1); Bilirubin, Total 0.4 mg/dL (0.2-1.2); Calc. Creatinine Clearance 30 mL/min (70-130); Calcium 8.5 mg/dL (7.8-10.44); Carbon Dioxide 26 mmol/L (23-31); Chloride 101 mmol/L (98-107); Estimated GFR-MDRD 34; Globulin 2.9 g/dL (2.4-3.5); Glucose 87 mg/dL (83-110); Potassium 4.2 mmol/L (3.5-5.1); Protein, Total 5.5 g/dL (6.0-8.3); Sodium 133 mmol/L (136-145)
--- NOTE | 2018-08-23 07:05 | PDOC.FM ---
- Subjective Subjective: pt dyspneic traveling from bed to restroom w/o O2, reports diarrhea. - Objective Vital Signs & Weight: Vital Signs (12 hours) Temp Pulse Resp BP BP Pulse Ox 08/23/18 04:42 97.8 F 70 20 112/68 97 08/23/18 00:00 98.0 F 112 H 20 95/56 L 94 L 08/22/18 21:11 96.3 F L 117 H 18 102/64 99 Weight Admit Weight 57.334 kg Weight 59.959 kg I&O: 08/22/18 08/23/18 08/24/18 06:59 06:59 06:59 Intake Total 1160 850 Output Total 800 350 Balance 360 500 Result Diagrams: 08/23/18 05:05 08/23/18 05:05 Phys Exam - Physical Examination Constitutional: NAD HEENT: moist MMs Neck: full ROM Gastrointestinal: no distention Musculoskeletal: no edema Neurological: moves all 4 limbs Psychiatric: normal affect Skin: no rash Dx/Plan (1) Acute and chronic respiratory failure with hypoxia Code(s): J96.21 - ACUTE AND CHRONIC RESPIRATORY FAILURE WITH HYPOXIA Status: Acute (2) Atrial fibrillation Code(s): I48.91 - UNSPECIFIED ATRIAL FIBRILLATION Status: Chronic (3) COPD (chronic obstructive pulmonary disease) Status: Chronic (4) HLD (hyperlipidemia) Code(s): E78.5 - HYPERLIPIDEMIA, UNSPECIFIED Status: Chronic (5) HTN (hypertension) Code(s): I10 - ESSENTIAL (PRIMARY) HYPERTENSION Status: Chronic (6) PVD (peripheral vascular disease) Code(s): I73.9 - PERIPHERAL VASCULAR DISEASE, UNSPECIFIED Status: Chronic (7) Pulmonary fibrosis Code(s): J84.10 - PULMONARY FIBROSIS, UNSPECIFIED Status: Chronic - Plan Plan: Acut on chronic hypoxemic respirator failure 2/2 CHF exacerbation -intermittently requiring O2 -LVEF 55-60% at Med 06/27/18, with no mention of diastolic heart failure -Echo here shows LVEF of 50/55%, and pulmonary hypertension, no mention of systolic or diastolic HF -lasix, Kdur Malignant pleural effusion in the setting of pulmonary fibrosis - s/p thoracentesis and chest tube -Pulmonology consulted, appreciate their recommendations - cell cytology indicates SCC vs neuroendocrine malignancy - Oncology, Dr. Joe consulted, appreciate recs - staging to be completed at [facility] followed by referral to [facility] -Pt on home meds, continued to have elevated HR, increased Metoprolol to 100mg BID and increased diltiazem to 180 daily - recent pacemaker placement -would benefit from ablation vs. 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
[2018-08-23] MEDS ORDERED: Loperamide HCl 2 MG CAP PO PRN (08:13)
[2018-08-23] MEDS ORDERED: Clopidogrel Bisulfate 75 MG TAB ONE (09:27)
[2018-08-23] MEDS: Aspirin 81 mg Enteric Coated Tablet PO SCH (09:45)
[2018-08-23] MEDS: Apixaban 5 MG TAB PO SCH ×2 (09:45→20:08)
[2018-08-23] MEDS: Folic Acid 1 MG TAB PO SCH (09:46)
[2018-08-23] MEDS: Potassium Chloride 20 MEQ TAB PO SCH (09:46)
[2018-08-23] MEDS: Metoprolol Tartrate 100 MG TAB PO SCH ×2 (09:46→20:08)
[2018-08-23] MEDS: Furosemide 20 MG TAB PO SCH (09:46)
[2018-08-23] MEDS: Polyethylene Glycol 3350 17 GM Packet PO SCH (09:47)
--- NOTE | 2018-08-23 11:42 | PRG ---
DATE OF SERVICE: 08/23/2018 Ms. Cronin is doing fine, having no distress. She is wanting to go to the [facility] for further workup of her small cell carcinoma. We will get briefcase sewer working on this. Job ID: [id number]
--- NOTE | 2018-08-23 12:05 | PRG ---
DATE OF SERVICE: SUBJECTIVE: Ms. Cronin is doing well. She has no complaints. She wants her treatment to be done at [facility]. Ideally, she should have her staging done at [facility] since they quite often repeat tests, but a bone scan and an MRI of her brain has been ordered for today. She could be discharged after these tests have been done in my opinion. OBJECTIVE: LUNGS: Unchanged. HEART: Unchanged. ABDOMEN: Unchanged. VITAL SIGNS: Stable. She did have transient elevated heart rates recorded last night. She is chronically in atrial fibrillation and has a recent pacemaker, single chamber, in place. She will remain on anticoagulants. The goal of her atrial fib is rate control. There is no plan to cardiovert her or ablate her. I have encouraged her to stay with family in [place] while she is going through her chemo and radiation until she figures out how well she will tolerate this, so she has emergent access to [facility] since it can be quite difficult to get people in the [facility] if they get hospitalized here. We will sign off. Job ID: [id number]
--- NOTE | 2018-08-23 13:03 | NM ---
WHOLE BODY BONE SCAN: HISTORY: Neuroendocrine tumor. Throat cancer. Skin cancer RADIOPHARMACEUTICAL: 33 mCi technetium 99m-MDP injected intravenously COMPARISON: None CORRELATION: CT abdomen pelvis of 08/22/2018 FINDINGS: There scattered degenerative activity in the appendicular skeleton and lower lumbar spine. No other abnormal areas of tracer localization is seen in the skeleton to suggest metastatic disease. Tracer excretion through the kidneys is within normal limits. IMPRESSION: No scintigraphic evidence of osseous metastatic disease.
[2018-08-23] MEDS: hydrOXYzine 10 MG TAB PO PRN (18:08)
[2018-08-23] MEDS: Rosuvastatin 10 MG TAB PO SCH (20:08)
[2018-08-23] MEDS: Famotidine 20 MG TAB PO SCH (20:08)
[2018-08-24] MEDS: Acetaminophen 325 MG TAB PO SCH ×3 (00:10→13:37)
[2018-08-24] MEDS: Levothyroxine Sodium 50 MCG TAB PO SCH (06:11)
[2018-08-24 06:55] LABS: #Eosinphils 0.3 thou/uL (0.0-0.7); #Lymphocytes 1.4 thou/uL (1.20-3.40); #Neutrophils 5.3 thou/uL (1.40-6.50); %Basophils 0.1 % (0.0-1.0); %Lymphocytes 17.2 % (21.0-51.0); %Monocytes 12.5 % (0.0-10.0); %Neutrophils 66.1 % (42.0-75.0); Hemoglobin 11.5 g/dL (12.0-16.0); Mean Corpuscular HGB CONC 31.3 g/dL (32.0-36.0); Mean Corpuscular Hemoglobin 27.7 pg (27.0-31.0); Mean Corpuscular Volume 88.3 fL (78.0-98.0); Mean Platelet Volume 8.2 fL (7.4-10.4); Platelet Count 290 thou/uL (130-400); RBC Distribution Width 18.3 % (11.5-14.5); Red Blood Cell (RBC) Count 4.14 mill/uL (4.20-5.40)
--- NOTE | 2018-08-24 07:15 | PDOC.FM ---
- Subjective Subjective: pt resting comfortably in bed, denies pain, SOB. desires to go home. - Objective Vital Signs & Weight: Vital Signs (12 hours) Temp Pulse Resp BP Pulse Ox 08/23/18 20:16 104 H 18 133/82 08/23/18 19:59 95 08/23/18 19:38 97.8 F 106 H 18 133/53 L 96 Weight Admit Weight 57.334 kg Weight 59.965 kg I&O: 08/23/18 08/24/18 08/25/18 06:59 06:59 06:59 Intake Total 850 1790 Output Total 350 Balance 500 1790 Result Diagrams: 08/24/18 06:15 08/24/18 06:15 Phys Exam - Physical Examination Constitutional: NAD HEENT: moist MMs Neck: full ROM Gastrointestinal: non-tender, no distention Musculoskeletal: no edema, pulses present Neurological: moves all 4 limbs Psychiatric: normal affect Skin: no rash Dx/Plan (1) Acute and chronic respiratory failure with hypoxia Code(s): J96.21 - ACUTE AND CHRONIC RESPIRATORY FAILURE WITH HYPOXIA Status: Acute (2) Atrial fibrillation Code(s): I48.91 - UNSPECIFIED ATRIAL FIBRILLATION Status: Chronic (3) COPD (chronic obstructive pulmonary disease) Status: Chronic (4) HLD (hyperlipidemia) Code(s): E78.5 - HYPERLIPIDEMIA, UNSPECIFIED Status: Chronic (5) HTN (hypertension) Code(s): I10 - ESSENTIAL (PRIMARY) HYPERTENSION Status: Chronic (6) PVD (peripheral vascular disease) Code(s): I73.9 - PERIPHERAL VASCULAR DISEASE, UNSPECIFIED Status: Chronic (7) Pulmonary fibrosis Code(s): J84.10 - PULMONARY FIBROSIS, UNSPECIFIED Status: Chronic - Plan Plan: Acut on chronic hypoxemic respirator failure 2/2 CHF exacerbation -intermittently requiring O2 -LVEF 55-60% at Med 06/27/18, with no mention of diastolic heart failure -Echo here shows LVEF of 50/55%, and pulmonary hypertension, no mention of systolic or diastolic HF -lasix, Kdur Malignant pleural effusion in the setting of pulmonary fibrosis - s/p thoracentesis and chest tube -Pulmonology consulted, appreciate their recommendations - cell cytology indicates SCC vs neuroendocrine malignancy - Oncology, Dr. Joe consulted, appreciate recs - pt desires treatment at [facility] -Pt on home meds, continued to have elevated HR, increased Metoprolol to 100mg BID and increased diltiazem to 180 daily - recent pacemaker placement -would benefit from ablation vs. 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 Reynolds. I agree with the History, Examination, Assessment and Plan documented above with any addition or exceptions noted below. Small cell carcinoma with malignant effusion- patient desires further workup and treatment at [facility]. Ready for d/c [facility]- rate no in the 80-100s. asyptomatic. continue beta alessandro and diltiazem.
[2018-08-24 07:18] LABS: Anion Gap 11 mmol/L (10-20); BUN (Urea Nitrogen) 14 mg/dL (9.8-20.1); Calc. Creatinine Clearance 33 mL/min (70-130); Calcium 8.8 mg/dL (7.8-10.44); Carbon Dioxide 25 mmol/L (23-31); Chloride 104 mmol/L (98-107); Estimated GFR-MDRD 39; Glucose 75 mg/dL (83-110); Potassium 4.1 mmol/L (3.5-5.1); Sodium 136 mmol/L (136-145)
[2018-08-24 07:21] VITALS: TEMP 97.7
[2018-08-24] MEDS: Potassium Chloride 20 MEQ TAB PO SCH (08:15)
[2018-08-24] MEDS: Furosemide 20 MG TAB PO SCH (08:16)
[2018-08-24] MEDS: Folic Acid 1 MG TAB PO SCH (08:16)
[2018-08-24] MEDS: Aspirin 81 mg Enteric Coated Tablet PO SCH (08:16)
[2018-08-24] MEDS: Polyethylene Glycol 3350 17 GM Packet PO SCH (08:21)
[2018-08-24] MEDS: Metoprolol Tartrate 100 MG TAB PO SCH (08:21)
[2018-08-24] MEDS: Apixaban 5 MG TAB PO SCH (08:21)
[2018-08-24 08:34] VITALS: BP 134/76
== END 2018-08-24 13:51 | disposition home or self-care (01) | DRG 180 ==
LOC: ERS 11:26 → 2SW 13:47 → OBSVTOIN 13:47 → 2NO 08-13 11:25 → T4-B 08-22 21:15
PROVIDERS: ADMIT Student in an Organized Health Care Education/Training Program; ATTEND Student in an Organized Health Care Education/Training Program
PROC: 0W9930Z Drainage of Right Pleural Cavity with Drainage Device, Percutaneous Approach (ICD-10-PCS; principal; 2018-08-16)
PROC: 0W9B3ZZ Drainage of Left Pleural Cavity, Percutaneous Approach (ICD-10-PCS; 2018-08-21)
DX: C34.91 Malignant neoplasm of unspecified part of right bronchus or lung (principal); J96.21 Acute and chronic respiratory failure with hypoxia; I50.33 Acute on chronic diastolic (congestive) heart failure; N17.9 Acute kidney failure, unspecified; J93.9 Pneumothorax, unspecified; J91.0 Malignant pleural effusion; I13.0 Hypertensive heart and chronic kidney disease with heart failure and stage 1 through stage 4 chronic kidney disease, or unspecified chronic kidney disease; N18.9 Chronic kidney disease, unspecified; I25.10 Atherosclerotic heart disease of native coronary artery without angina pectoris; E78.5 Hyperlipidemia, unspecified; N81.6 Rectocele; E87.5 Hyperkalemia; I48.0 Paroxysmal atrial fibrillation; J43.9 Emphysema, unspecified; K81.9 Cholecystitis, unspecified; I49.5 Sick sinus syndrome; J84.10 Pulmonary fibrosis, unspecified; R19.7 Diarrhea, unspecified; Z87.891 Personal history of nicotine dependence; Z86.79 Personal history of other diseases of the circulatory system; Z95.0 Presence of cardiac pacemaker; Z79.899 Other long term (current) drug therapy; Z79.01 Long term (current) use of anticoagulants; Z91.048 Other nonmedicinal substance allergy status; Z79.82 Long term (current) use of aspirin; Z90.49 Acquired absence of other specified parts of digestive tract; Z85.21 Personal history of malignant neoplasm of larynx; Z95.5 Presence of coronary angioplasty implant and graft; Z99.81 Dependence on supplemental oxygen; Z92.3 Personal history of irradiation
CPT/HCPCS: 36415; 71045; 71046; 71250; 74177; 76705; 78306; 80048; 80053; 80061; 80076; 81003; 81015; 82150; 82378; 82550; 82805; 82945; 83605; 83615; 83690; 83880; 83986; 84157; 84484; 85014; 85018; 85025; 85060; 87070; 87086; 87205; 88112; 88305; 88341; 88342; 88360; 89051; 93005; 93010; 93306; 93798; 94760; 96374; A9503; J1885; J1940; J2001; J2270; J2405; J2543; J3490; J7620; Q0162

== ENCOUNTER 2018-09-05 11:11 | Observation (INO) | payer MEDICARE ==
[2018-09-05 11:52] LABS: Actual Bicarbonate (HCO3a) 25.9 mEq/L (22-28); Analyzer IN Cardio ER; Base Excess (BEa) 1.7 mEq/L (-2.0 to +3.0); CO2 Tension 39.4 mmHg (35.0-45.0); Calcium, Ionized 1.14 mmol/L (1.12-1.30); O2 Tension (PaO2) 70.9 mmHg (> 70.0); Potassium - ABG Lab 4.16 mmol/L (3.70-5.30); pH, Arterial 7.44 (7.35-7.45)
[2018-09-05 11:53] LABS: Puncture Site RRA
[2018-09-05 11:57] LABS: #Eosinphils 0.3 thou/uL (0.0-0.7); #Lymphocytes 1.3 thou/uL (1.20-3.40); #Monocytes 0.9 thou/uL (0.11-0.59); #Neutrophils 7.9 thou/uL (1.40-6.50); %Basophils 0.4 % (0.0-1.0); %Eosinophils 3.3 % (0.0-10.0); %Lymphocytes 12.3 % (21.0-51.0); %Monocytes 8.5 % (0.0-10.0); %Neutrophils 75.5 % (42.0-75.0); Mean Corpuscular HGB CONC 31.7 g/dL (32.0-36.0); Mean Corpuscular Hemoglobin 28.5 pg (27.0-31.0); Mean Platelet Volume 8.3 fL (7.4-10.4); Platelet Count 502 thou/uL (130-400); RBC Distribution Width 19.8 % (11.5-14.5); Red Blood Cell (RBC) Count 4.89 mill/uL (4.20-5.40); White Blood Cell (WBC) Count 10.5 thou/uL (4.8-10.8)
--- NOTE | 2018-09-05 12:04 | RAD ---
Exam: Chest one view HISTORY:Weakness. 80% oxygenation on room air. Comparison: 08/19/2018 FINDINGS: Persistent opacification of the right hemithorax due to pleural effusion with associated parenchymal change. Stable aeration of the right upper lobe. Stable aeration of the left lung. Chronic changes in the visualized lung parenchyma. Stable atherosclerosis. Presumed cardiomegaly. Limited evaluation of the right heart border. Stable s satya lead pacemaker. No pneumothorax. No osseous abnormalities. IMPRESSION: 1. No significant interval change. Persistent pleural parenchymal changes as described above. There i s a large right-sided pleural effusion with presumed adjacent right middle changes.
[2018-09-05] MEDS ORDERED: traMADol HCl 50 MG TAB ONE (12:24)
[2018-09-05 12:27] LABS: ALT (SGPT) 8 U/L (8-55); AST (SGOT) 21 U/L (5-34); Albumin 3.4 g/dL (3.4-4.8); Alkaline Phosphatase 116 U/L (40-150); Anion Gap 15 mmol/L (10-20); BUN (Urea Nitrogen) 15 mg/dL (9.8-20.1); Bilirubin, Total 0.8 mg/dL (0.2-1.2); Calc. Creatinine Clearance 0 mL/min (70-130); Calcium 9.6 mg/dL (7.8-10.44); Carbon Dioxide 29 mmol/L (23-31); Chloride 93 mmol/L (98-107); Estimated GFR-MDRD 39; Globulin 3.5 g/dL (2.4-3.5); Glucose 119 mg/dL (83-110); Lipase 264 U/L (8-78); Potassium 3.9 mmol/L (3.5-5.1); Protein, Total 6.9 g/dL (6.0-8.3); Sodium 133 mmol/L (136-145)
--- NOTE | 2018-09-05 15:05 | PDOC.FPRHP ---
- History of Present Illness Chief Complaint: dyspnea, weakness History of Present Illness: PCP: Dr. Al Hernandez Mehrdad is a 78 year old F with a PMH of recently diagnoses lung cancer and malignant pleural effusion, CAD s/p stent, PVD s/p b/l LE stents, COPD on 2 L NC at home, CHF, Atrial Fibrillation, HTN, HLD who presented to the ED with a 3 day history of progressively worsening dyspnea and weakness. Patient was discharged from [facility] on 08/24/18 after an admission during which she was diagnosed with lung cancer. During that admission, she had a thoracentesis done that resulted in a 20% pneumothorax. Chest tube was placed and later removed. She had a repeat thoracentesis during that admission because the fluid collected for the initial thoracentesis was suspicious for malignancy. She states that she has been staying with her daughter for the last week and she was doing well and getting around fine up until three days ago. Her daughter states that the patient has also been dealing with increased stress lately and wonders if stress could be playing into her symptoms. Pt and daughter denies patient having any recent fever, chills, vision changes, chest pain, n/v/d, abdominal pain, dysuria. Her symptoms worsened to the point where family decided to call EMS today. Upon arrival, EMS found that her O2 sats were 83% on her normal 2L of home O2. She was given 2 duonebs by EMS and her oxygen was increased to 4L. Patient states, and daughter agrees, that she is currently feeling better now than she has been in the last 3 days. She denies any dyspnea at this moment. In the ER, she was given tramadol 50 mg for back pain. ERMD: Dr. Thomas Amato - Allergies/Adverse Reactions Allergies Allergy/AdvReac Type Severity Reaction Status Date / Time adhesive tape Allergy Verified 08/11/18 18:39 - Home Medications Medication Instructions Recorded Confirmed Type Apixaban [Eliquis] 5 mg PO BID 08/11/18 08/11/18 History Aspirin [Aspir-Low] 81 mg PO DAILY 08/11/18 08/11/18 History Folic Acid 1 mg PO DAILY 08/11/18 08/11/18 History Furosemide [Lasix] 40 mg PO DAILY 08/11/18 08/11/18 History Levothyroxine Sodium 50 mcg PO DAILY 08/11/18 08/11/18 History Metoprolol Tartrate 25 mg PO BID 08/11/18 08/11/18 History Potassium Chloride [K-Dur] 20 meq PO DAILY 08/11/18 08/11/18 History Rosuvastatin [Crestor] 10 mg PO HS 08/11/18 08/11/18 History hydrOXYzine [Atarax] 10 mg PO BID PRN 08/11/18 08/11/18 History Diltiazem HCl [Cardizem CD] 180 mg PO DAILY #30 cap 08/24/18 Rx Metoprolol Tartrate [Lopressor] 100 mg PO BID #60 tab 08/24/18 Rx - History PMHx: Recently diagnosed lung cancer, CAD s/p stent, PVD s/p b/l LE stent, A fib , pacemaker, CHF, COPD on 2 L home NC, HTN, HLD PSHx: coronary stent placement, PCI, peripheral stent placement, recent pacemaker placement, appendectomy, hysterectomy FHx: Social: 40 pk yr smoking hx, quit 8 years ago, rarely drinks, lives by herself and until recently was able to manage her ADLs - Review of Systems General: reports: weight/appetite/sleep changes. denies: fever/chills, night sweats Eyes: denies: eye pain, vision changes ENT: denies: nasal congestion, rhinorrhea Respiratory: reports: congestion, shortness of breath, exercise intolerance. denies: cough Cardiovascular: denies: chest pain, palpitation, edema, paroxysmal nocturnal dyspnea Gastrointestinal: reports: constipation. denies: nausea, vomiting, diarrhea, abdominal pain Genitourinary: denies: dysuria, polyuria Skin: denies: rashes, lesions Musculoskeletal: denies: pain, tenderness, stiffness Neurological: denies: numbness, syncope, seizure Psychological: reports: anxiety. denies: depression - Vital signs BP: 111/62 HR: 85 RR: 21 Pox: 95 % on 4 L NC Wt: 53 kg - Physical Exam Constitutional: NAD, awake, alert and oriented HEENT: normocephalic and atraumatic, PERRLA, EOMI, conjunctiva clear, no scleral icterus Neck: supple, FROM, no LAD, no JVD Chest: no-tender to palpation, no lesions Heart: normal S1/S2, no murmurs/rubs/gallops -Heart: irregularly irregular rhythm, normal rate Lungs: no respiratory distress -Lungs: decreased air movement R>L Abdomen: soft, non-tender, bowel sounds present Musculoskeletal: normal structure, normal tone, ROM grossly normal Neurological: no focal deficit, CN II-XII intact Skin: no rash/lesions, capillary refill <2 seconds Heme/Lymphatic: no unusual bruising or bleeding, no purpura Psychiatric: normal mood and affect, good judgment and insight, intact recent and remote memory FMR H&P: Results - Labs Result Diagrams: 09/05/18 11:39 09/05/18 11:39 Lab results: WBC 10.5 thou/uL (4.8-10.8) 09/05/18 11:39 Hgb 14.0 g/dL (12.0-16.0) 09/05/18 11:39 Hct 44.1 % (36.0-47.0) 09/05/18 11:39 MCV 90.0 fL (78.0-98.0) 09/05/18 11:39 Plt Count 502 thou/uL (130-400) H 09/05/18 11:39 Neutrophils % 75.5 % (42.0-75.0) H 09/05/18 11:39 ABG pH 7.44 (7.35-7.45) 09/05/18 11:48 ABG pCO2 39.4 mmHg (35.0-45.0) 09/05/18 11:48 ABG pO2 70.9 mmHg (> 70.0) H 09/05/18 11:48 Sodium 133 mmol/L (136-145) L 09/05/18 11:39 Potassium 3.9 mmol/L (3.5-5.1) 09/05/18 11:39 Chloride 93 mmol/L (98-107) L 09/05/18 11:39 Carbon Dioxide 29 mmol/L (23-31) 09/05/18 11:39 BUN 15 mg/dL (9.8-20.1) 09/05/18 11:39 Creatinine 1.32 mg/dL (0.6-1.1) H 09/05/18 11:39 Glucose 119 mg/dL (83-110) H 09/05/18 11:39 Calcium 9.6 mg/dL (7.8-10.44) 09/05/18 11:39 Total Bilirubin 0.8 mg/dL (0.2-1.2) 09/05/18 11:39 AST 21 U/L (5-34) 09/05/18 11:39 ALT 8 U/L (8-55) 09/05/18 11:39 Alkaline Phosphatase 116 U/L (40-150) 09/05/18 11:39 Serum Total Protein 6.9 g/dL (6.0-8.3) 09/05/18 11:39 Albumin 3.4 g/dL (3.4-4.8) 09/05/18 11:39 Lipase 264 U/L (8-78) H 09/05/18 11:39 - EKG Interpretation EKG: a fib, rate controlled, no ST changes, occasional PVCs - Radiology Interpretation Chest x-ray Status: image reviewed by me, report reviewed by me (no significant interval change, large right sided pleural effusion) FMR H&P: A/P - Problem List (1) Acute and chronic respiratory failure with hypoxia Current Visit: No Status: Acute Code(s): J96.21 - ACUTE AND CHRONIC RESPIRATORY FAILURE WITH HYPOXIA (2) COPD exacerbation Current Visit: Yes Status: Acute Code(s): J44.1 - CHRONIC OBSTRUCTIVE PULMONARY DISEASE W (ACUTE) EXACERBATION (3) Malignant pleural effusion Current Visit: Yes Status: Acute Code(s): J91.0 - MALIGNANT PLEURAL EFFUSION (4) Atrial fibrillation Current Visit: No Status: Chronic Code(s): I48.91 - UNSPECIFIED ATRIAL FIBRILLATION (5) CHF (congestive heart failure) Current Visit: No Status: Chronic Code(s): I50.9 - HEART FAILURE, UNSPECIFIED (6) COPD (chronic obstructive pulmonary disease) Current Visit: No Status: Chronic (7) HLD (hyperlipidemia) Current Visit: No Status: Chronic Code(s): E78.5 - HYPERLIPIDEMIA, UNSPECIFIED (8) HTN (hypertension) Current Visit: No Status: Chronic Code(s): I10 - ESSENTIAL (PRIMARY) HYPERTENSION (9) Hx of laryngeal cancer Current Visit: No Status: Chronic Code(s): Z85.21 - PERSONAL HISTORY OF MALIGNANT NEOPLASM OF LARYNX (10) PVD (peripheral vascular disease) Current Visit: No Status: Chronic Code(s): I73.9 - PERIPHERAL VASCULAR DISEASE, UNSPECIFIED (11) Presence of stent in coronary artery in patient with coronary artery disease Current Visit: No Status: Chronic Code(s): I25.10 - ATHSCL HEART DISEASE OF I[place] CORONARY ARTERY W/O ANG PCTRS; Z95.5 - PRESENCE OF CORONARY ANGIOPLASTY IMPLANT AND GRAFT (12) Pulmonary fibrosis Current Visit: No Status: Chronic Code(s): J84.10 - PULMONARY FIBROSIS, UNSPECIFIED (13) Small cell carcinoma of right lung Current Visit: Yes Status: Acute Code(s): C34.91 - MALIGNANT NEOPLASM OF UNSP PART OF RIGHT BRONCHUS OR LUNG - Plan 1) Acute on chronic hypoxic respiratory failure - 3 days of progressive weakness and dyspnea - CXR: large right pleural effusion with no significant interval change - improvement in symptoms with 2 duoneb treatments in ED - increased O2 requirement from baseline at home, currently on 4L NC - consulted pulmonology, discussed case with Dr. Short, who suggestive that pt may need pleurocath if pleural effusion truly recurred so quickly - it is possible that this is a mild COPD exac with improvement in all symptoms with duonebs - dnei duonebs q6h, starting prednisone 40 mg daily for 5 days - obs/medical - patient scheduled to go to [facility] tomorrow 2) Small Cell Carcinoma of lung - recently diagnosed in last hospitalization - patient elected to forgo treatment in town - has initial appointment at [facility] in the coming weeks 3) Large Right Malignant Pleural Effusion - consulted pulm, Dr. Short - Dr. Bello has seen patient in prev admission and in OP setting - Dr. Short recommended possibility of pleurocath placement 4) COPD Exac: mild - see #1 - duonebs and prednisone 5) CHF - continue home medications - no LE edema 6) A fib - continue home medications - currently in a fib, rate controlled 7) CAD/PVD - continue home medications PCP: Al Diet: HH incl low Na, Fluid restriction 1500 ml Dispo: Obs, anticipate stay >2 midnights, patient is set up to go to [facility] tomorrow CODE STATUS: FULL CODE FMR H&P: Upper Level - Plan Date/Time: 09/05/18 1452 I, [], have evaluated this patient and agree with findings/plan as outlined by equine intern resident. Pertinent changes/additions are listed here. Addendum - Attending - Attending Attestation Date/Time: 09/05/18 [id number] I personally evaluated the patient and discussed the management with Dr. Ndiaye. I agree with the History, Examination, Assessment and Plan documented above with any addition or exceptions noted below.
[2018-09-05] MEDS ORDERED: Acetaminophen 325 MG TAB PO PRN (18:39)
[2018-09-05] MEDS ORDERED: Ondansetron PF 4 MG/2 ML Vial IVP PRN (18:39)
[2018-09-05 18:40] VITALS: BMI 22.4
[2018-09-05] MEDS ORDERED: Famotidine 20 MG TAB PO SCH ×2 (21:00→21:45)
[2018-09-05] MEDS ORDERED: hydrOXYzine 10 MG TAB PO PRN (21:12)
[2018-09-05] MEDS ORDERED: traMADol HCl 50 MG TAB PO PRN (21:12)
[2018-09-05] MEDS ORDERED: Metoprolol Tartrate 100 MG TAB PO SCH (21:45)
[2018-09-05] MEDS ORDERED: Apixaban 5 MG TAB PO SCH (21:45)
[2018-09-05] MEDS ORDERED: Rosuvastatin 10 MG TAB PO SCH (21:45)
[2018-09-05] MEDS: traMADol HCl 50 MG TAB PO PRN (22:03)
[2018-09-06] MEDS ORDERED: Levothyroxine Sodium 50 MCG TAB PO SCH ×2 (06:00→09:00)
[2018-09-06 06:04] LABS: #Basophils 0.1 thou/uL (0.0-0.2); #Eosinphils 0.4 thou/uL (0.0-0.7); #Lymphocytes 1.8 thou/uL (1.20-3.40); #Monocytes 1.2 thou/uL (0.11-0.59); #Neutrophils 5.2 thou/uL (1.40-6.50); %Basophils 0.7 % (0.0-1.0); %Eosinophils 5.1 % (0.0-10.0); %Lymphocytes 20.4 % (21.0-51.0); %Monocytes 13.8 % (0.0-10.0); Hemoglobin 11.5 g/dL (12.0-16.0); Mean Corpuscular HGB CONC 31.5 g/dL (32.0-36.0); Mean Corpuscular Hemoglobin 28.5 pg (27.0-31.0); Mean Corpuscular Volume 90.7 fL (78.0-98.0); Mean Platelet Volume 8.6 fL (7.4-10.4); Platelet Count 339 thou/uL (130-400); RBC Distribution Width 19.8 % (11.5-14.5); Red Blood Cell (RBC) Count 4.02 mill/uL (4.20-5.40); White Blood Cell (WBC) Count 8.7 thou/uL (4.8-10.8)
[2018-09-06 06:08] LABS: Anion Gap 12 mmol/L (10-20); BUN (Urea Nitrogen) 16 mg/dL (9.8-20.1); Calc. Creatinine Clearance 34 mL/min (70-130); Carbon Dioxide 31 mmol/L (23-31); Chloride 95 mmol/L (98-107); Estimated GFR-MDRD 45; Glucose 88 mg/dL (83-110); Potassium 3.7 mmol/L (3.5-5.1)
[2018-09-06 06:10] LABS: Sodium 134 mmol/L (136-145)
[2018-09-06 07:25] VITALS: BP 107/73; TEMP 96.9
--- NOTE | 2018-09-06 08:49 | PDOC.FM ---
- Subjective Subjective: Mary Cronin seen at bedside this morning. She states that she is feeling great and dyspnea is much improved. She states that she feels like she is back to her baseline and she would like to be discharged this morning so that she keep go to [facility] as scheduled for rehab. She states that she has an appointment in one week at [facility] for her initial small cell lung cancer visit. There were no acute events overnight and she has no complaints this morning. She denies any fever, chills, chest pain, dyspnea, n/v, abdominal pain , weakness. - Objective MAR Reviewed: Yes Vital Signs & Weight: Vital Signs (12 hours) Temp Pulse Resp BP Pulse Ox 09/06/18 07:21 96.9 F L 76 18 107/73 94 L 09/06/18 06:45 92 L 09/06/18 06:43 101 H 16 92 L 09/06/18 04:00 97.4 F L 86 18 101/64 96 09/06/18 03:00 80 97 09/06/18 02:47 85 16 95 09/06/18 01:00 97.5 F L 86 18 101/61 98 09/05/18 22:32 16 09/05/18 21:09 97 96 09/05/18 21:01 97.3 F L 102 H 20 121/72 91 L Weight Weight 53.977 kg I&O: 09/05/18 09/06/18 09/07/18 06:59 06:59 06:59 Intake Total 400 Balance 400 Result Diagrams: 09/06/18 05:04 09/06/18 05:04 Phys Exam - Physical Examination Constitutional: NAD HEENT: moist MMs, sclera anicteric Neck: supple, full ROM Respiratory: no wheezing, no rales, no rhonchi, clear to auscultation bilateral decreased breath sounds R>L Cardiovascular: no significant murmur irregularly irregular rhythm, normal rate Gastrointestinal: soft, non-tender, no distention Musculoskeletal: no edema, pulses present Neurological: non-focal, normal sensation, moves all 4 limbs Psychiatric: normal affect, A&O x 3 Skin: no rash Dx/Plan (1) Acute and chronic respiratory failure with hypoxia Code(s): J96.21 - ACUTE AND CHRONIC RESPIRATORY FAILURE WITH HYPOXIA Status: Acute (2) COPD exacerbation Code(s): J44.1 - CHRONIC OBSTRUCTIVE PULMONARY DISEASE W (ACUTE) EXACERBATION Status: Acute (3) Malignant pleural effusion Code(s): J91.0 - MALIGNANT PLEURAL EFFUSION Status: Acute (4) Atrial fibrillation Code(s): I48.91 - UNSPECIFIED ATRIAL FIBRILLATION Status: Chronic (5) CHF (congestive heart failure) Code(s): I50.9 - HEART FAILURE, UNSPECIFIED Status: Chronic (6) COPD (chronic obstructive pulmonary disease) Status: Chronic (7) HLD (hyperlipidemia) Code(s): E78.5 - HYPERLIPIDEMIA, UNSPECIFIED Status: Chronic (8) HTN (hypertension) Code(s): I10 - ESSENTIAL (PRIMARY) HYPERTENSION Status: Chronic (9) Hx of laryngeal cancer Code(s): Z85.21 - PERSONAL HISTORY OF MALIGNANT NEOPLASM OF LARYNX Status: Chronic (10) PVD (peripheral vascular disease) Code(s): I73.9 - PERIPHERAL VASCULAR DISEASE, UNSPECIFIED Status: Chronic (11) Presence of stent in coronary artery in patient with coronary artery disease Code(s): I25.10 - ATHSCL HEART DISEASE OF [place] CORONARY ARTERY W/O ANG PCTRS; Z95.5 - PRESENCE OF CORONARY ANGIOPLASTY IMPLANT AND GRAFT Status: Chronic (12) Pulmonary fibrosis Code(s): J84.10 - PULMONARY FIBROSIS, UNSPECIFIED Status: Chronic (13) Small cell carcinoma of right lung Code(s): C34.91 - MALIGNANT NEOPLASM OF UNSP PART OF RIGHT BRONCHUS OR LUNG Status: Acute - Plan Plan: 1) Acute on chronic hypoxic respiratory failure - 3 days of progressive weakness and dyspnea - CXR: large right pleural effusion with no significant interval change - improvement in symptoms with 2 duoneb treatments in ED - increased O2 requirement from baseline at home upon admission, she is now back to baseline 2L NC - contacted pulmonology, discussed case with Dr. Short, who suggestive that pt may need pleurocath if pleural effusion truly recurred so quickly - it more likely that the pleural effusion is relatively stable and the cause of her symptoms is more related to COPD - she will continue prednisone for 4 more days at SNF and will continue duonebs at facility as well - d/c home today and she will go to [facility] this afternoon as scheduled 2) Small Cell Carcinoma of lung - recently diagnosed in last hospitalization - patient elected to forgo treatment in [facility] - has initial appointment at [facility] in one week 3) Large Right Malignant Pleural Effusion - consulted pulm, Dr. Short - Dr. Bello has seen patient in prev admission and in OP setting - Dr. Short recommended possibility of pleurocath placement if pleural effusion worsens - cxr showed no interval change - removed consult as patient has improved dramatically with treating COPD 4) COPD Exac: mild - see #1 - duonebs and prednisone 5) CHF - continue home medications - no LE edema 6) A fib - continue home medications - currently in a fib, rate controlled 7) CAD/PVD - continue home medications Addendum - Attending - Attending Attestation Date/Time: 09/06/18 [id number] I personally evaluated the patient and discussed the management with Dr. Ndiaye I agree with the History, Examination, Assessment and Plan documented above with any addition or exceptions noted below. Patient with recently DX small cell lung CA she is aware of aggressiveness of these cancers she prefers opinion from [facility] before starting treatment. She has known large malignant effusion s/p thoracentesis complicated by pneumothorax. Patient with known COPD and much relief with nebulizer treatment oxygen requirement back to baseline requirement and as above patient ready to go to rehab . Discussed that effusion if drained may rapidly return and not causing any respiratory compromise but if becomes symptomatic she might benefit from pleurovac. She endorses understanding and will be discharged and COPD management will be optimized.
[2018-09-06] MEDS ORDERED: Apixaban 5 MG TAB PO SCH (09:00)
[2018-09-06] MEDS ORDERED: Aspirin 81 mg Enteric Coated Tablet PO SCH (09:00)
[2018-09-06] MEDS ORDERED: Potassium Chloride 20 MEQ TAB PO SCH (09:00)
[2018-09-06] MEDS ORDERED: Metoprolol Tartrate 100 MG TAB PO SCH (09:00)
[2018-09-06] MEDS ORDERED: Folic Acid 1 MG TAB PO SCH (09:00)
[2018-09-06] MEDS ORDERED: Escitalopram Oxalate 10 mg Tablet PO SCH (09:00)
[2018-09-06] MEDS ORDERED: Furosemide 40 MG TAB PO SCH (09:00)
[2018-09-06] MEDS ORDERED: predniSONE 20 MG TAB PO SCH (09:00)
[2018-09-06] MEDS: traMADol HCl 50 MG TAB PO PRN (11:10)
[2018-09-06] MEDS ORDERED: Rosuvastatin 10 MG TAB PO SCH (21:00)
[2018-09-06] MEDS ORDERED: Famotidine 20 MG TAB PO SCH (21:00)
--- NOTE | 2018-09-07 04:41 | DIS ---
DATE OF ADMISSION: 09/05/2018 DATE OF DISCHARGE: 09/06/2018 ADMITTING ATTENDING: Damian Hdez MD. RESIDENT: Humble Ndiaye MD. CONSULTS: Guido consult pulmonology, Dr. Short. PROCEDURES: 1. Chest x-ray on 09/05/2018, impression no significant interval change. Persistent pleural-parenchymal changes. There is a large right-sided pleural effusion with presumed adjacent right middle changes. 2. Blood cultures taken on 09/05/2018, impression no growth to date. PRIMARY DIAGNOSES: 1. Guulx-en-ziaazvo respiratory failure with hypoxia. 2. Mild chronic obstructive pulmonary disease exacerbation. SECONDARY DIAGNOSES: 1. Large malignant pleural effusion on the right. 2. Small cell carcinoma of the right lung. 3. Hypertension. 4. Hyperlipidemia. 5. Chronic obstructive pulmonary disease. 6. Congestive heart failure. 7. Coronary artery disease. 8. Peripheral vascular disease. 9. Atrial fibrillation. DISCHARGE MEDICATIONS: Resume home medications includin. Hydroxyzine 10 mg p.o. t.i.d. p.r.n. 2. Folic acid 1 mg p.o. daily. 3. Potassium chloride 20 mEq p.o. daily. 4. Aspirin 81 mg p.o. daily. 5. Levothyroxine 50 mcg daily p.o. daily. 6. Eliquis 5 mg p.o. b.i.d. 7. Crestor 10 mg p.o. at bedtime. 8. Furosemide 40 mg p.o. daily. 9. Diltiazem HCL 180 mg p.o. daily. 10. Metoprolol tartrate 100 mg p.o. b.i.d. 11. Zofran 4 mg p.o. q.4 hours p.r.n. 12. Escitalopram oxalate 10 mg p.o. daily. 13. Tramadol HCL 50 mg p.o. q.12 hours p.r.n. NEW HOME MEDICATIONS: Include: 1. DuoNebs 3 mL neb q.4 hours. 2. Prednisone 40 mg p.o. daily for 4 days. HISTORY OF PRESENT ILLNESS/HOSPITAL COURSE: Ms. Mary Cronin is a 78-year-old female with a past medical historyof recently diagnosed lung cancer and malignant pleural effusion, coronary artery disease, peripheral vascular disease, COPD on 2 L nasal cannula at home, CHF, atrial fibrillation, hypertension, hyperlipidemia, who presented to the ED with a 3 day history of progressively worsening dyspnea and weakness. She was discharged from [facility] on 08/24/2018 after an admission during which she was diagnosed with lung cancer. During that admission, she had a thoracentesis done, which resulted in a 20% pneumothorax. Chest tube was placed and later removed. She had a repeat thoracentesis during that admission, because the fluid collected on the initial thoracentesis was suspicious for malignancy. The subsequent thoracentesis fluid showed small cell carcinoma of the right lung. There is small cell carcinoma. The patient states that she had been seen with her daughter for the last week after her hospital stay and had been doing well and getting around fine up until 3 days ago. Her daughter states the patient has been dealing with increased stress lately and wonders if that stress could be playing a role in her symptoms. The patient daughter deny patient having any recent fever, chills, vision changes, chest pain, nausea, vomiting, diarrhea, abdominal pain or dysuria. The patient states that symptoms worsened to the point where family decided to call EMS on the day of admission. Upon arrival, EMS found that her O2 sats were 83% on her normal 2 L of home O2. The patient was given two DuoNebs via EMS and oxygen and nasal cannula was increased to 4 L. Upon admission patient and daughter agreed that the patient was currently feeling better than she had been in the last 3 days and she was denying any dyspnea down at the ER. In the ER, she was given 50 mg of tramadol for back pain. PHYSICAL EXAMINATION: On admission, vitals were blood pressure 111/62, heart rate 85, respiratory rate 21, pulse ox 95 percent on 4 L. CARDIOVASCULAR: Physical examination was significant for irregularly irregular rhythm with a normal rate. LUNGS: Had decreased air movement on the right compared to the left. LABORATORY DATA: White blood count 10.5, hemoglobin 14.0, hematocrit 44.1, platelets 502. Sodium 133, potassium 3.9, chloride 93, bicarb 29, BUN 15, creatinine 1.32, glucose of 119. IMAGIN. EKG showed atrial fibrillation, rate controlled. No ST changes and occasional PVCs. 2. Chest x-ray showed no significant interval change and large right-sided pleural effusion. The patient was admitted for acute on chronic hypoxic respiratory failure. She was started on DuoNebs and prednisone as this was thought to be possibly more related to COPD exacerbation as patient had improved significantly with DuoNebs alone. Dr. Short was curbside consulted and I discussed the patient case with Dr. Short. He suggested that, if pleural effusion rapidly recurred that pleural cath may be necessary for the patient. However, he agreed that that is due to the patient's symptoms being improved so drastically with DuoNebs that it is reasonable to cover for mild COPD exacerbation. Upon admission, patient did not make note that she was going to be going to [facility] tomorrow for rehabilitation that she had her initial appointment at [facility] for her small cell carcinoma of the lung in 1 week. The patient did well overnight and symptoms continued to improve drastically on the morning of 09/06/2018. Patient stated that she was feeling great and that she was ready to be discharged that she can go to custodial facility for rehab. The patient was cleared for discharge on 09/06/2018 and her hospital stay was otherwise uncomplicated. DISPOSITION: Stable. PROGNOSIS: Guarded as she does have small cell carcinoma of the lung and she is delaying treatment, so that she can go to [facility]. However, this acute illness is likely more related to COPD and less likely due to worsening pleural effusion as patient's symptoms have had dramatically improved, improved with COPD treatment. In short term, patient should do well, if she has successful rehabilitation at custodial facility and she keeps her appointment with [facility] in 1 week. DISCHARGE INSTRUCTIONS: 1. Location: Home then to custodial facility at [place] that has already been scheduled. 2. Activity as tolerated. 3. Diet: Heart healthy. 4. Followup: Follow up with Dr. Melendez her PCP as well as [facility] and pulmonology for routine followup for large right-sided pleural effusion and potential pleural cath placement, if pleural effusion worsens. Job ID: [id number]
== END 2018-09-06 11:35 | disposition home or self-care (01) ==
LOC: ERS 11:11 → T4-A 13:49
PROVIDERS: ADMIT Family Medicine; ATTEND Family Medicine
DX: J96.21 Acute and chronic respiratory failure with hypoxia (principal); J44.1 Chronic obstructive pulmonary disease with (acute) exacerbation; C34.91 Malignant neoplasm of unspecified part of right bronchus or lung; J91.0 Malignant pleural effusion; I11.0 Hypertensive heart disease with heart failure; I50.9 Heart failure, unspecified; I25.10 Atherosclerotic heart disease of native coronary artery without angina pectoris; I48.91 Unspecified atrial fibrillation; I73.9 Peripheral vascular disease, unspecified; E78.5 Hyperlipidemia, unspecified; F41.9 Anxiety disorder, unspecified; J84.10 Pulmonary fibrosis, unspecified; Z79.82 Long term (current) use of aspirin; Z79.899 Other long term (current) drug therapy; Z87.891 Personal history of nicotine dependence; Z91.048 Other nonmedicinal substance allergy status; Z95.0 Presence of cardiac pacemaker; Z95.5 Presence of coronary angioplasty implant and graft
CPT/HCPCS: 71045; 80048; 80053; 82805; 83690; 84484; 85025 ×2; 87040; 93005; 94640 ×3; 97139; 99285; G0378 ×2; 36415; J7512; J7620